=== PATIENT | male | born 1985 | race Caucasian/White ===

== ENCOUNTER 2017-03-09 17:53 | Inpatient (IN) ==
[~2017-03-09 17:53] MED LIST: *HR* Etomidate 20 MG/10 ML AMPUL IVP ONE; *HR* Rocuronium Bromide 100 MG/10 ML VIAL IVC ONE
[2017-03-09] MEDS ORDERED: 0.9 % Sodium Chloride 1,000 ML IVC ONE (18:06)
[2017-03-09] MEDS ORDERED: Propofol 500 MG/50 ML INFUS..BTL ONE ×2 (18:11→21:07)
--- NOTE | 2017-03-09 18:13 | Emergency Department Note ---
Disposition Clinical Impression: Poisoning by opiate or related narcotic Drug overdose Qualifiers: Encounter type: initial encounter Injury intent: undetermined intent Qualified Code(s): T50.904A - Poisoning by unspecified drugs, medicaments and biological substances, undetermined, initial encounter Respiratory failure Qualifiers: Chronicity: acute Respiratory failure complication: hypoxia and hypercapnia Qualified Code(s): J96.01 - Acute respiratory failure with hypoxia Disposition: Admitted As Inpatient Condition: Critical Referrals: NONE,PCP [Primary Care Provider] - Forms: ED Satisfaction Letter General Adult HPI - General Chief complaint: ED Overdose Stated complaint: unresponsive Time Seen by Provider: 03/09/17 18:06 Source: EMS Limitations: other Nursing Notes Reviewed: Yes Vital Signs Reviewed: Yes - History of Present Illness Pain Scale: 0 - Related Data Home Medications Medication Instructions Recorded Confirmed Gabapentin [Neurontin] 800 mg PO TID 03/09/17 03/09/17 Ibuprofen [Motrin] 800 mg PO Q8HR 03/09/17 03/09/17 Lurasidone HCl [Latuda] 80 mg PO HS 03/09/17 03/09/17 Naloxone HCl [Narcan] 4 mg NS AD PRN 03/09/17 03/09/17 Neomycin Blount/Bacitrac Zn/Poly 1 appl TP DAILY 03/09/17 03/09/17 [Triple Antibiotic Ointment] Thiamine (B-1) [Vitamin B-1] 100 mg PO BID 03/09/17 03/09/17 Allergies Allergy/AdvReac Type Severity Reaction Status Date / Time naltrexone AdvReac See Verified 03/09/17 20:17 Comments sumatriptan [From Imitrex] AdvReac See Verified 03/09/17 20:17 Comments Past Medical History - Past Medical History Medical history: Reports: other - Social History Smoking Status: Unknown if ever smoked Smokeless Tobacco Status: No Drug use: Reports: unknown Physical Exam - General Limitations: other General appearance: alert, in no apparent distress Course Vital Signs Temperature 0 F L 03/09/17 17:55 Pulse Rate 111 03/09/17 17:55 Respiratory Rate 22 03/09/17 17:55 Blood Pressure 134/76 03/09/17 17:55 O2 Sat by Pulse Oximetry 91 03/09/17 17:55 Temperature 0 F L 03/09/17 17:55 Pulse Rate 103 03/09/17 19:39 Respiratory Rate 24 03/09/17 19:39 Blood Pressure 149/93 03/09/17 19:39 O2 Sat by Pulse Oximetry 100 03/09/17 19:39 Oxygen Delivery Oxygen Delivery Ventilator Medical Decision Making - MDM Narrative Medical decision making narrative: I examined this patient and my medical decision-making was reviewed with the Resident Physician. I agree with the documented findings, disposition and treatment plan as described except to the extent set forth below. Patient seen and evaluated on arrival with EMS I agree with Dr. Villalba's evaluation and management plan, supervise care the patient's stay. Patient was found down at a retirement. Thomas medications multiple duplicates medications including buprenorphine and psychiatric medications. Uncertain whether he overdosed or not. No history of heroin use. Please responded initially given 2 mg of Narcan without response did another 4 mg here without much change. So he was electively intubated. Do not see any track iniguez. No signs of trauma. His pupils were 4 mm and slow to react. He was intubated and he is going over for head CT CT of his neck also chest x-ray and then a medical workup. He will need admission. Head CT 03/09/17 18:06 IMPRESSION: No acute intracranial abnormality. D/ / Antonino Hooper / Antonino Hooper Interpreting Provider: Antonino Hooper Chest X-Ray 03/09/17 18:36 IMPRESSION: Endotracheal tube with tip at the level the gideon. The endotracheal tube should be retracted by approximately 3 cm. Enteric tube, side hole above the gastroesophageal junction. The enteric tube should be advanced by several cm. Left pleural effusion left basilar airspace disease. Low lung volume study showing perihilar airspace disease. Correlation for pulmonary edema is recommended. D/ / Blanca Morrison Cha, MD / Blanca Morrison Cha, MD Interpreting Provider: Blanca Morrison Cha, MD 1847 hrs.: Patient had an EKG performed shows sinus tachycardia rate 110, glucose is 106, QTC is 415, no signs of acute ischemia or other abnormality, no old EKG to compare this to. 1930 hrs.: Patient's labs are back positive for marijuana and opiates in his urine. He is resting comfortably on the vent. Impression is respiratory failure with hypoxia and hypercapnia, drug overdose and alcohol intoxication. Patient will be admitted to the ICU unit. We will speak to the hospitalist. Critical care time exclusive of any separately billable procedures is 50 minutes. - Lab Data Result diagrams: 03/09/17 19:15 03/09/17 19:15 Lab Results 03/09/17 03/09/17 03/09/17 Range/Units 18:50 18:50 18:50 WBC (4.3-11.1) K/mcL RBC (4.19-5.50) M/mcL Hgb (12.9-16.9) g/dL Hct (37.5-50.1) % MCV (83.0-100.0) fL MCH (28.0-33.3) pg MCHC (31.6-35.5) g/dL RDW (11.5-14.5) % Plt Count (140-400) K/mcL MPV (9.4-12.4) fL Immature Gran % (0-4) % Seg Neutrophils % % Lymphocytes % % Monocytes % % Eosinophils % % Basophils % % Neutrophils # (1.6-8.9) K/mcL Lymphocytes # (0.6-4.6) K/mcL Monocytes # (0.0-1.3) K/mcL Eosinophils # (0.0-0.6) K/mcL Basophils # (0.0-0.2) K/mcL Reactive Lymphocytes (Not Present) Platelet Estimate (Normal) ABG pH 7.18 L* (7.32-7.45) pH Units ABG pCO2 64 H (35-45) mmHg ABG pO2 236 H (85-104) mmHg ABG HCO3 23.9 (21-27) mEQ/L ABG Total CO2 25.9 (20-26) mEq/L ABG O2 Saturation 100 H (95-98) % ABG Base Excess -5.9 L (-2.0 to 3.0) mEq/L Blood Gas Modality VCT Inspired O2 100 % Sodium (136-145) mEq/L Potassium (3.5-4.5) mEq/L Chloride (98-109) mEq/L Carbon Dioxide (19-29) mEq/L BUN (8-26) mg/dL Creatinine (0.72-1.25) mg/dL Est GFR ( Amer) (> 60) Est GFR (Non-Af Amer) (> 60) BUN/Creatinine Ratio (6-26) Glucose (70-99) mg/dL Calculated Osmolality (280-300) Lactic Acid (0.5-2.2) mmol/L Calcium (8.6-10.8) mg/dL Total Bilirubin (0.2-1.2) mg/dL Direct Bilirubin (0.0-0.5) mg/dL Indirect Bilirubin (0.0-1.2) mg/dL AST (5-34) Units/L ALT (0-55) Units/L Alkaline Phosphatase (38-126) Units/L Troponin I (0-0.03) ng/mL Serum Total Protein (6.0-8.3) g/dL Albumin (3.5-5.0) g/dL Globulin (2.4-3.5) g/dL Albumin/Globulin Ratio (1.1-2.2) Urine Color Yellow (Yellow) Urine Clarity Clear (Clear) Urine pH 6.0 (5.0-8.0) pH Units Ur Specific [place] 1.011 (1.010-1.025) Urine Protein Negative (Neg-Trace) mg/dL Urine Glucose (UA) Normal (Normal) mg/dL Urine Ketones Negative (Negative) mg/dL Urine Blood Negative (Negative) Urine Nitrite Negative (Negative) Urine Bilirubin Negative (Negative) Urine Urobilinogen Normal (Normal) mg/dL Ur Leukocyte Esterase Negative (Negative) Salicylates (15-30) mg/dL Urine Opiates Screen Positive H (Hnedyi=020) ng/mL Acetaminophen (10-30) mcg/mL Ur Barbiturates Screen Negative (Fuvord=783) ng/mL Ur Phencyclidine Scrn Negative (Cutoff=25) ng/mL Ur Amphetamines Screen Negative (Msuuox=4494) ng/mL U Benzodiazepines Scrn Negative (Qqmwwd=914) ng/mL Urine Cocaine Screen Negative (Cutoff= 300) ng/mL U Marijuana (THC) Screen Positive H (Cutoff = 50) ng/mL Ethyl Alcohol (0-10) mg/dL 03/09/17 03/09/17 03/09/17 Range/Units 19:15 19:15 19:15 WBC 4.7 (4.3-11.1) K/mcL RBC 5.42 (4.19-5.50) M/mcL Hgb 15.6 (12.9-16.9) g/dL Hct 47.5 (37.5-50.1) % MCV 87.6 (83.0-100.0) fL MCH 28.8 (28.0-33.3) pg MCHC 32.8 (31.6-35.5) g/dL RDW 15.6 H (11.5-14.5) % Plt Count 214 (140-400) K/mcL MPV 9.9 (9.4-12.4) fL Immature Gran % 1.1 (0-4) % Seg Neutrophils % 14.1 % Lymphocytes % 66.2 % Monocytes % 16.2 % Eosinophils % 1.3 % Basophils % 1.1 % Neutrophils # 0.7 L (1.6-8.9) K/mcL Lymphocytes # 3.1 (0.6-4.6) K/mcL Monocytes # 0.8 (0.0-1.3) K/mcL Eosinophils # 0.1 (0.0-0.6) K/mcL Basophils # 0.1 (0.0-0.2) K/mcL Reactive Lymphocytes Present A (Not Present) Platelet Estimate Normal (Normal) ABG pH (7.32-7.45) pH Units ABG pCO2 (35-45) mmHg ABG pO2 (85-104) mmHg ABG HCO3 (21-27) mEQ/L ABG Total CO2 (20-26) mEq/L ABG O2 Saturation (95-98) % ABG Base Excess (-2.0 to 3.0) mEq/L Blood Gas Modality Inspired O2 % Sodium 143 (136-145) mEq/L Potassium 3.6 (3.5-4.5) mEq/L Chloride 110 H (98-109) mEq/L Carbon Dioxide 23 (19-29) mEq/L BUN 6 L (8-26) mg/dL Creatinine 0.65 L (0.72-1.25) mg/dL Est GFR ( Amer) > 60 (> 60) Est GFR (Non-Af Amer) > 60 (> 60) BUN/Creatinine Ratio 9 (6-26) Glucose 136 H (70-99) mg/dL Calculated Osmolality 296 (280-300) Lactic Acid 1.6 (0.5-2.2) mmol/L Calcium 7.9 L (8.6-10.8) mg/dL Total Bilirubin 0.7 (0.2-1.2) mg/dL Direct Bilirubin 0.3 (0.0-0.5) mg/dL Indirect Bilirubin 0.4 (0.0-1.2) mg/dL AST 294 H (5-34) Units/L ALT 651 H (0-55) Units/L Alkaline Phosphatase 94 (38-126) Units/L Troponin I (0-0.03) ng/mL Serum Total Protein 6.8 (6.0-8.3) g/dL Albumin 3.6 (3.5-5.0) g/dL Globulin 3.2 (2.4-3.5) g/dL Albumin/Globulin Ratio 1.1 (1.1-2.2) Urine Color (Yellow) Urine Clarity (Clear) Urine pH (5.0-8.0) pH Units Ur Specific [place] (1.010-1.025) Urine Protein (Neg-Trace) mg/dL Urine Glucose (UA) (Normal) mg/dL Urine Ketones (Negative) mg/dL Urine Blood (Negative) Urine Nitrite (Negative) Urine Bilirubin (Negative) Urine Urobilinogen (Normal) mg/dL Ur Leukocyte Esterase (Negative) Salicylates < 5.0 L (15-30) mg/dL Urine Opiates Screen (Iktdtd=876) ng/mL Acetaminophen < 1.0 L (10-30) mcg/mL Ur Barbiturates Screen (Sfioxi=830) ng/mL Ur Phencyclidine Scrn (Cutoff=25) ng/mL Ur Amphetamines Screen (Mnkhyb=0764) ng/mL U Benzodiazepines Scrn (Cwzxit=672) ng/mL Urine Cocaine Screen (Cutoff= 300) ng/mL U Marijuana (THC) Screen (Cutoff = 50) ng/mL Ethyl Alcohol 369 H (0-10) mg/dL 03/09/17 Range/Units 19:15 WBC (4.3-11.1) K/mcL RBC (4.19-5.50) M/mcL Hgb (12.9-16.9) g/dL Hct (37.5-50.1) % MCV (83.0-100.0) fL MCH (28.0-33.3) pg MCHC (31.6-35.5) g/dL RDW (11.5-14.5) % Plt Count (140-400) K/mcL MPV (9.4-12.4) fL Immature Gran % (0-4) % Seg Neutrophils % % Lymphocytes % % Monocytes % % Eosinophils % % Basophils % % Neutrophils # (1.6-8.9) K/mcL Lymphocytes # (0.6-4.6) K/mcL Monocytes # (0.0-1.3) K/mcL Eosinophils # (0.0-0.6) K/mcL Basophils # (0.0-0.2) K/mcL Reactive Lymphocytes (Not Present) Platelet Estimate (Normal) ABG pH (7.32-7.45) pH Units ABG pCO2 (35-45) mmHg ABG pO2 (85-104) mmHg ABG HCO3 (21-27) mEQ/L ABG Total CO2 (20-26) mEq/L ABG O2 Saturation (95-98) % ABG Base Excess (-2.0 to 3.0) mEq/L Blood Gas Modality Inspired O2 % Sodium (136-145) mEq/L Potassium (3.5-4.5) mEq/L Chloride (98-109) mEq/L Carbon Dioxide (19-29) mEq/L BUN (8-26) mg/dL Creatinine (0.72-1.25) mg/dL Est GFR ( Amer) (> 60) Est GFR (Non-Af Amer) (> 60) BUN/Creatinine Ratio (6-26) Glucose (70-99) mg/dL Calculated Osmolality (280-300) Lactic Acid (0.5-2.2) mmol/L Calcium (8.6-10.8) mg/dL Total Bilirubin (0.2-1.2) mg/dL Direct Bilirubin (0.0-0.5) mg/dL Indirect Bilirubin (0.0-1.2) mg/dL AST (5-34) Units/L ALT (0-55) Units/L Alkaline Phosphatase (38-126) Units/L Troponin I 0.00 (0-0.03) ng/mL Serum Total Protein (6.0-8.3) g/dL Albumin (3.5-5.0) g/dL Globulin (2.4-3.5) g/dL Albumin/Globulin Ratio (1.1-2.2) Urine Color (Yellow) Urine Clarity (Clear) Urine pH (5.0-8.0) pH Units Ur Specific [place] (1.010-1.025) Urine Protein (Neg-Trace) mg/dL Urine Glucose (UA) (Normal) mg/dL Urine Ketones (Negative) mg/dL Urine Blood (Negative) Urine Nitrite (Negative) Urine Bilirubin (Negative) Urine Urobilinogen (Normal) mg/dL Ur Leukocyte Esterase (Negative) Salicylates (15-30) mg/dL Urine Opiates Screen (Aoywxn=340) ng/mL Acetaminophen (10-30) mcg/mL Ur Barbiturates Screen (Jvejrk=155) ng/mL Ur Phencyclidine Scrn (Cutoff=25) ng/mL Ur Amphetamines Screen (Nujknw=9247) ng/mL U Benzodiazepines Scrn (Oslqia=338) ng/mL Urine Cocaine Screen (Cutoff= 300) ng/mL U Marijuana (THC) Screen (Cutoff = 50) ng/mL Ethyl Alcohol (0-10) mg/dL
[2017-03-09] MEDS ORDERED: *HR* Rocuronium Bromide 50 MG/5 ML VIAL IVP ONE (18:36)
[2017-03-09] MEDS ORDERED: *HR* Etomidate 20 MG/10 ML AMPUL IVP ONE (18:36)
--- NOTE | 2017-03-09 18:42 | Emergency Department Note ---
Overdose - [facility] Narrative Medical decision making narrative: Patient brought in altered mental status from a [place] [facility] concerning for overdose, huge bag of medication was brought in with the patient. Patient was intubated here in the ED. Placed on vent. Labs show: ABG pH 7.18, CO2 64, O2 236, base excess -5.9. Patient respiratory acidosis Elevated transaminases AST/ALT: 294/651 respectively, patient is positive for opiates, marijuana, and EtOH 369. Patient to be admitted to ICU - Lab Data Lab results reviewed: Yes I reviewed the patient's lab results. Lab results narrative: Short CBC 03/09/17 Range/Units 19:15 WBC 4.7 (4.3-11.1) K/mcL Hgb 15.6 (12.9-16.9) g/dL Hct 47.5 (37.5-50.1) % Plt Count 214 (140-400) K/mcL Neutrophils # 0.7 L (1.6-8.9) K/mcL BMP 03/09/17 Range/Units 19:15 Sodium 143 (136-145) mEq/L Potassium 3.6 (3.5-4.5) mEq/L Chloride 110 H (98-109) mEq/L Carbon Dioxide 23 (19-29) mEq/L BUN 6 L (8-26) mg/dL Creatinine 0.65 L (0.72-1.25) mg/dL Glucose 136 H (70-99) mg/dL Calcium 7.9 L (8.6-10.8) mg/dL Cardiac Enzymes 03/09/17 Range/Units 19:15 Troponin I 0.00 (0-0.03) ng/mL Liver Function 03/09/17 Range/Units 19:15 Total Bilirubin 0.7 (0.2-1.2) mg/dL Direct Bilirubin 0.3 (0.0-0.5) mg/dL AST 294 H (5-34) Units/L ALT 651 H (0-55) Units/L Alkaline Phosphatase 94 (38-126) Units/L Albumin 3.6 (3.5-5.0) g/dL Urine 03/09/17 Range/Units 18:50 Urine Color Yellow (Yellow) Urine Clarity Clear (Clear) Urine pH 6.0 (5.0-8.0) pH Units Ur Specific [place] 1.011 (1.010-1.025) Urine Protein Negative (Neg-Trace) mg/dL Urine Glucose (UA) Normal (Normal) mg/dL Result diagrams: 03/09/17 19:15 03/09/17 19:15 Lab Results 03/09/17 03/09/17 03/09/17 Range/Units 18:50 18:50 18:50 WBC (4.3-11.1) K/mcL RBC (4.19-5.50) M/mcL Hgb (12.9-16.9) g/dL Hct (37.5-50.1) % MCV (83.0-100.0) fL MCH (28.0-33.3) pg MCHC (31.6-35.5) g/dL RDW (11.5-14.5) % Plt Count (140-400) K/mcL MPV (9.4-12.4) fL Immature Gran % (0-4) % Seg Neutrophils % % Lymphocytes % % Monocytes % % Eosinophils % % Basophils % % Neutrophils # (1.6-8.9) K/mcL Lymphocytes # (0.6-4.6) K/mcL Monocytes # (0.0-1.3) K/mcL Eosinophils # (0.0-0.6) K/mcL Basophils # (0.0-0.2) K/mcL Reactive Lymphocytes (Not Present) Platelet Estimate (Normal) ABG pH 7.18 L* (7.32-7.45) pH Units ABG pCO2 64 H (35-45) mmHg ABG pO2 236 H (85-104) mmHg ABG HCO3 23.9 (21-27) mEQ/L ABG Total CO2 25.9 (20-26) mEq/L ABG O2 Saturation 100 H (95-98) % ABG Base Excess -5.9 L (-2.0 to 3.0) mEq/L Blood Gas Modality VCT Inspired O2 100 % Sodium (136-145) mEq/L Potassium (3.5-4.5) mEq/L Chloride (98-109) mEq/L Carbon Dioxide (19-29) mEq/L BUN (8-26) mg/dL Creatinine (0.72-1.25) mg/dL Est GFR ( Amer) (> 60) Est GFR (Non-Af Amer) (> 60) BUN/Creatinine Ratio (6-26) Glucose (70-99) mg/dL Calculated Osmolality (280-300) Lactic Acid (0.5-2.2) mmol/L Calcium (8.6-10.8) mg/dL Total Bilirubin (0.2-1.2) mg/dL Direct Bilirubin (0.0-0.5) mg/dL Indirect Bilirubin (0.0-1.2) mg/dL AST (5-34) Units/L ALT (0-55) Units/L Alkaline Phosphatase (38-126) Units/L Troponin I (0-0.03) ng/mL Serum Total Protein (6.0-8.3) g/dL Albumin (3.5-5.0) g/dL Globulin (2.4-3.5) g/dL Albumin/Globulin Ratio (1.1-2.2) Urine Color Yellow (Yellow) Urine Clarity Clear (Clear) Urine pH 6.0 (5.0-8.0) pH Units Ur Specific [place] 1.011 (1.010-1.025) Urine Protein Negative (Neg-Trace) mg/dL Urine Glucose (UA) Normal (Normal) mg/dL Urine Ketones Negative (Negative) mg/dL Urine Blood Negative (Negative) Urine Nitrite Negative (Negative) Urine Bilirubin Negative (Negative) Urine Urobilinogen Normal (Normal) mg/dL Ur Leukocyte Esterase Negative (Negative) Salicylates (15-30) mg/dL Urine Opiates Screen Positive H (Tgxfow=996) ng/mL Acetaminophen (10-30) mcg/mL Ur Barbiturates Screen Negative (Axlvof=554) ng/mL Ur Phencyclidine Scrn Negative (Cutoff=25) ng/mL Ur Amphetamines Screen Negative (Fmjxon=4594) ng/mL U Benzodiazepines Scrn Negative (Zjglur=476) ng/mL Urine Cocaine Screen Negative (Cutoff= 300) ng/mL U Marijuana (THC) Screen Positive H (Cutoff = 50) ng/mL Ethyl Alcohol (0-10) mg/dL 03/09/17 03/09/17 03/09/17 Range/Units 19:15 19:15 19:15 WBC 4.7 (4.3-11.1) K/mcL RBC 5.42 (4.19-5.50) M/mcL Hgb 15.6 (12.9-16.9) g/dL Hct 47.5 (37.5-50.1) % MCV 87.6 (83.0-100.0) fL MCH 28.8 (28.0-33.3) pg MCHC 32.8 (31.6-35.5) g/dL RDW 15.6 H (11.5-14.5) % Plt Count 214 (140-400) K/mcL MPV 9.9 (9.4-12.4) fL Immature Gran % 1.1 (0-4) % Seg Neutrophils % 14.1 % Lymphocytes % 66.2 % Monocytes % 16.2 % Eosinophils % 1.3 % Basophils % 1.1 % Neutrophils # 0.7 L (1.6-8.9) K/mcL Lymphocytes # 3.1 (0.6-4.6) K/mcL Monocytes # 0.8 (0.0-1.3) K/mcL Eosinophils # 0.1 (0.0-0.6) K/mcL Basophils # 0.1 (0.0-0.2) K/mcL Reactive Lymphocytes Present A (Not Present) Platelet Estimate Normal (Normal) ABG pH (7.32-7.45) pH Units ABG pCO2 (35-45) mmHg ABG pO2 (85-104) mmHg ABG HCO3 (21-27) mEQ/L ABG Total CO2 (20-26) mEq/L ABG O2 Saturation (95-98) % ABG Base Excess (-2.0 to 3.0) mEq/L Blood Gas Modality Inspired O2 % Sodium 143 (136-145) mEq/L Potassium 3.6 (3.5-4.5) mEq/L Chloride 110 H (98-109) mEq/L Carbon Dioxide 23 (19-29) mEq/L BUN 6 L (8-26) mg/dL Creatinine 0.65 L (0.72-1.25) mg/dL Est GFR ( Amer) > 60 (> 60) Est GFR (Non-Af Amer) > 60 (> 60) BUN/Creatinine Ratio 9 (6-26) Glucose 136 H (70-99) mg/dL Calculated Osmolality 296 (280-300) Lactic Acid 1.6 (0.5-2.2) mmol/L Calcium 7.9 L (8.6-10.8) mg/dL Total Bilirubin 0.7 (0.2-1.2) mg/dL Direct Bilirubin 0.3 (0.0-0.5) mg/dL Indirect Bilirubin 0.4 (0.0-1.2) mg/dL AST 294 H (5-34) Units/L ALT 651 H (0-55) Units/L Alkaline Phosphatase 94 (38-126) Units/L Troponin I (0-0.03) ng/mL Serum Total Protein 6.8 (6.0-8.3) g/dL Albumin 3.6 (3.5-5.0) g/dL Globulin 3.2 (2.4-3.5) g/dL Albumin/Globulin Ratio 1.1 (1.1-2.2) Urine Color (Yellow) Urine Clarity (Clear) Urine pH (5.0-8.0) pH Units Ur Specific [place] (1.010-1.025) Urine Protein (Neg-Trace) mg/dL Urine Glucose (UA) (Normal) mg/dL Urine Ketones (Negative) mg/dL Urine Blood (Negative) Urine Nitrite (Negative) Urine Bilirubin (Negative) Urine Urobilinogen (Normal) mg/dL Ur Leukocyte Esterase (Negative) Salicylates < 5.0 L (15-30) mg/dL Urine Opiates Screen (Skykyo=705) ng/mL Acetaminophen < 1.0 L (10-30) mcg/mL Ur Barbiturates Screen (Lknxqn=855) ng/mL Ur Phencyclidine Scrn (Cutoff=25) ng/mL Ur Amphetamines Screen (Iaovdb=3848) ng/mL U Benzodiazepines Scrn (Fhvwxj=993) ng/mL Urine Cocaine Screen (Cutoff= 300) ng/mL U Marijuana (THC) Screen (Cutoff = 50) ng/mL Ethyl Alcohol 369 H (0-10) mg/dL 03/09/17 Range/Units 19:15 WBC (4.3-11.1) K/mcL RBC (4.19-5.50) M/mcL Hgb (12.9-16.9) g/dL Hct (37.5-50.1) % MCV (83.0-100.0) fL MCH (28.0-33.3) pg MCHC (31.6-35.5) g/dL RDW (11.5-14.5) % Plt Count (140-400) K/mcL MPV (9.4-12.4) fL Immature Gran % (0-4) % Seg Neutrophils % % Lymphocytes % % Monocytes % % Eosinophils % % Basophils % % Neutrophils # (1.6-8.9) K/mcL Lymphocytes # (0.6-4.6) K/mcL Monocytes # (0.0-1.3) K/mcL Eosinophils # (0.0-0.6) K/mcL Basophils # (0.0-0.2) K/mcL Reactive Lymphocytes (Not Present) Platelet Estimate (Normal) ABG pH (7.32-7.45) pH Units ABG pCO2 (35-45) mmHg ABG pO2 (85-104) mmHg ABG HCO3 (21-27) mEQ/L ABG Total CO2 (20-26) mEq/L ABG O2 Saturation (95-98) % ABG Base Excess (-2.0 to 3.0) mEq/L Blood Gas Modality Inspired O2 % Sodium (136-145) mEq/L Potassium (3.5-4.5) mEq/L Chloride (98-109) mEq/L Carbon Dioxide (19-29) mEq/L BUN (8-26) mg/dL Creatinine (0.72-1.25) mg/dL Est GFR ( Amer) (> 60) Est GFR (Non-Af Amer) (> 60) BUN/Creatinine Ratio (6-26) Glucose (70-99) mg/dL Calculated Osmolality (280-300) Lactic Acid (0.5-2.2) mmol/L Calcium (8.6-10.8) mg/dL Total Bilirubin (0.2-1.2) mg/dL Direct Bilirubin (0.0-0.5) mg/dL Indirect Bilirubin (0.0-1.2) mg/dL AST (5-34) Units/L ALT (0-55) Units/L Alkaline Phosphatase (38-126) Units/L Troponin I 0.00 (0-0.03) ng/mL Serum Total Protein (6.0-8.3) g/dL Albumin (3.5-5.0) g/dL Globulin (2.4-3.5) g/dL Albumin/Globulin Ratio (1.1-2.2) Urine Color (Yellow) Urine Clarity (Clear) Urine pH (5.0-8.0) pH Units Ur Specific [place] (1.010-1.025) Urine Protein (Neg-Trace) mg/dL Urine Glucose (UA) (Normal) mg/dL Urine Ketones (Negative) mg/dL Urine Blood (Negative) Urine Nitrite (Negative) Urine Bilirubin (Negative) Urine Urobilinogen (Normal) mg/dL Ur Leukocyte Esterase (Negative) Salicylates (15-30) mg/dL Urine Opiates Screen (Nsbfzv=559) ng/mL Acetaminophen (10-30) mcg/mL Ur Barbiturates Screen (Fqlzer=086) ng/mL Ur Phencyclidine Scrn (Cutoff=25) ng/mL Ur Amphetamines Screen (Lprawu=5773) ng/mL U Benzodiazepines Scrn (Kfnbtu=208) ng/mL Urine Cocaine Screen (Cutoff= 300) ng/mL U Marijuana (THC) Screen (Cutoff = 50) ng/mL Ethyl Alcohol (0-10) mg/dL - Radiology Data Radiology results reviewed: Yes I reviewed the patient's radiology results. Head CT 03/09/17 18:06 IMPRESSION: No acute intracranial abnormality. D/ / Antonino Hooper / Antonino Hooper Interpreting Provider: Antonino Hooper Chest X-Ray 03/09/17 18:36 IMPRESSION: Endotracheal tube with tip at the level the gideon. The endotracheal tube should be retracted by approximately 3 cm. Enteric tube, side hole above the gastroesophageal junction. The enteric tube should be advanced by several cm. Left pleural effusion left basilar airspace disease. Low lung volume study showing perihilar airspace disease. Correlation for pulmonary edema is recommended. D/ / Blanca Morrison Cha, MD / Blanca Morrison Cha, MD Interpreting Provider: Blanca Morrison Cha, MD - EKG Data EKG attestation: Yes I reviewed and interpreted this EKG. EKG results narrative: EKG taken 03/09/2017 at 1847 hrs. shows sinus tachycardia at [address] elevations or depressions any leads, no QRS widened QT prolongation. Overdose HPI - General Chief Complaint: ED Overdose Stated Complaint: unresponsive Time Seen by Provider: 03/09/17 18:06 Source: EMS Limitations: other Nursing Notes Reviewed: Yes Vital Signs Reviewed: Yes - History of Present Illness HPI Narrative: Patient is a 31-year-old mal who is brought into the EMS secondary to altered mental status secondary to possible overdose versus head trauma. Resuscitation initiated immediately. Patient received 6mg of Narcan total, 2 by police, for by us. No response. Patient's GCS 3 still breathing but shallowly. Patient intubated and placed on vent for mechanical support. - Related Data Home Medications Medication Instructions Recorded Confirmed Gabapentin [Neurontin] 800 mg PO TID 03/09/17 03/09/17 Ibuprofen [Motrin] 800 mg PO Q8HR 03/09/17 03/09/17 Lurasidone HCl [Latuda] 80 mg PO HS 03/09/17 03/09/17 Naloxone HCl [Narcan] 4 mg NS AD PRN 03/09/17 03/09/17 Neomycin Blount/Bacitrac Zn/Poly 1 appl TP DAILY 03/09/17 03/09/17 [Triple Antibiotic Ointment] Thiamine (B-1) [Vitamin B-1] 100 mg PO BID 03/09/17 03/09/17 Allergies Allergy/AdvReac Type Severity Reaction Status Date / Time naltrexone AdvReac See Verified 03/09/17 20:17 Comments sumatriptan [From Imitrex] AdvReac See Verified 03/09/17 20:17 Comments Limitations: ROS unobtainable due to patients medical condition Past Medical History - Past Medical History Source: unable to obtain, old records reviewed Medical history: Reports: other - Social History Smoking Status: Unknown if ever smoked Smokeless Tobacco Status: No Drug use: Reports: unknown Physical Exam - General Limitations: altered mental status, other General appearance: alert, in no apparent distress - Head Head exam: atraumatic, normocephalic, normal inspection - Eye Eye exam: Present: other (Pupils 5 mm reactive to light) - ENT ENT exam: mucous membranes moist - Neck Neck exam: Present: normal inspection, trachea midline - Chest Chest inspection: Present: normal inspection - Respiratory Respiratory exam: Present: normal lung sounds bilaterally - Cardiovascular Cardiovascular exam: Present: tachycardia - Abdominal Exam Abdominal exam: Present: soft - Male exam: Present: normal inspection - Extremities Exam Extremities exam: Present: normal inspection Course - Consultations Consultation #1: Dr. Marques the hospitalist has except patient for admission to ICU at 2047 Time: 20:56 Vital Signs Temperature 0 F L 03/09/17 17:55 Pulse Rate 111 03/09/17 17:55 Respiratory Rate 22 03/09/17 17:55 Blood Pressure 134/76 03/09/17 17:55 O2 Sat by Pulse Oximetry 91 03/09/17 17:55 Temperature 97.8 F 03/09/17 20:30 Pulse Rate 103 03/09/17 20:30 Respiratory Rate 19 03/09/17 20:48 Blood Pressure 141/90 03/09/17 20:48 O2 Sat by Pulse Oximetry 100 03/09/17 20:48 Oxygen Delivery Oxygen Delivery Ventilator Procedures - Intubation Time out performed: Yes sedative: Etomidate Mg Given: 30 paralytic: Rocuronium Mg Given: 100 Laryngoscope: Dk ET Tube Size: 7.5 ET Tube Uncuffed: No Tube Secured Depth (cm): 25 Tube Secured Location: teeth Tube Placement Confirmation: visualized tube passing through cords, equal breath sounds bilaterally, no breath sounds over epigastrium, confirmation by capnometry Patient Tolerated Procedure: well, no complications Intubation Complications: none Disposition Clinical Impression: Poisoning by opiate or related narcotic, Respiratory acidosis Drug overdose Qualifiers: Encounter type: initial encounter Injury intent: undetermined intent Qualified Code(s): T50.904A - Poisoning by unspecified drugs, medicaments and biological substances, undetermined, initial encounter Respiratory failure Qualifiers: Chronicity: acute Respiratory failure complication: hypoxia and hypercapnia Qualified Code(s): J96.01 - Acute respiratory failure with hypoxia Overdose of analgesic Qualifiers: Encounter type: initial encounter Injury intent: undetermined intent Qualified Code(s): T39.94XA - Poisoning by unspecified nonopioid analgesic, antipyretic and antirheumatic, undetermined, initial encounter Disposition: Admitted As Inpatient Condition: Critical Referrals: NONE,PCP [Primary Care Provider] - Forms: ED Satisfaction Letter Time of Disposition: 20:57
[2017-03-09 19:01] LABS: Bilirubin,Urine Negative (Negative); Blood,Urine Negative (Negative); Clarity,Urine Clear (Clear); Color,Urine Yellow (Yellow); Glucose,Urine (UA) Normal (Normal); Ketones,Urine Negative (Negative); Leukocyte Esterase,Urine Negative (Negative); Nitrite,Urine Negative (Negative); Protein,Urine Negative (Neg-Trace); Specific Gravity,Urine 1.011 (1.010-1.025); Urobilinogen,Urine Normal (Normal)
[2017-03-09 19:04] LABS: ABG Base Excess -5.9 mEq/L (-2.0 to 3.0); ABG HCO3 23.9 mEQ/L (21-27); ABG Oxygen Saturation 100 % (95-98); ABG PCO2 64 mmHg (35-45); ABG PO2 236 mmHg (85-104); ABG TCO2 25.9 mEq/L (20-26); Blood Gas FiO2 100 %
[2017-03-09 19:05] LABS: ABG PH 7.18 pH Units (7.32-7.45)
[2017-03-09 19:08] LABS: Amphetamine Screen,Urine Negative ng/mL (Cutoff=1000); Barbiturate Screen,Urine Negative ng/mL (Cutoff=200); Benzodiazepines Screen,Urine Negative ng/mL (Cutoff=200); Cannabinoid Screen,Urine Positive ng/mL (Cutoff = 50); Cocaine Screen,Urine Negative ng/mL (Cutoff= 300); Opiate Screen,Urine Positive ng/mL (Cutoff=300); Phencyclidine Screen,Urine Negative ng/mL (Cutoff=25)
[2017-03-09 19:23] LABS: Basophils # 0.1 K/mcL (0.0-0.2); Basophils % 1.1 %; Eosinophils # 0.1 K/mcL (0.0-0.6); Eosinophils % 1.3 %; Hematocrit 47.5 % (37.5-50.1); Hemoglobin 15.6 g/dL (12.9-16.9); Immature Granulocytes % 1.1 % (0-4); Lymphocytes # 3.1 K/mcL (0.6-4.6); Lymphocytes % 66.2 %; Mean Corpuscular HGB Conc 32.8 g/dL (31.6-35.5); Mean Corpuscular Hemoglobin 28.8 pg (28.0-33.3); Mean Corpuscular Volume 87.6 fL (83.0-100.0); Mean Platelet Volume 9.9 fL (9.4-12.4); Monocytes # 0.8 K/mcL (0.0-1.3); Monocytes % 16.2 %; Neutrophils # 0.7 K/mcL (1.6-8.9); Platelet Count 214 K/mcL (140-400); Red Blood Count 5.42 M/mcL (4.19-5.50); Red Cell Distribution Width 15.6 % (11.5-14.5); Segmented Neutrophils % 14.1 %
[2017-03-09 19:38] LABS: Alanine Aminotransferase 651 Units/L (0-55); Albumin 3.6 g/dL (3.5-5.0); Albumin/Globulin Ratio 1.1 (1.1-2.2); Alkaline Phosphatase 94 Units/L (38-126); Aspartate Amino Transferase 294 Units/L (5-34); BUN/Creatinine Ratio 9 (6-26); Bilirubin,Direct 0.3 mg/dL (0.0-0.5); Bilirubin,Indirect 0.4 mg/dL (0.0-1.2); Bilirubin,Total 0.7 mg/dL (0.2-1.2); Blood Urea Nitrogen 6 mg/dL (8-26); Calcium 7.9 mg/dL (8.6-10.8); Carbon Dioxide 23 mEq/L (19-29); Chloride 110 mEq/L (98-109); Ethanol 369 mg/dL (0-10); Globulin 3.2 g/dL (2.4-3.5); Glucose 136 mg/dL (70-99); Osmolality,Calculated 296 (280-300); Potassium 3.6 mEq/L (3.5-4.5); Sodium 143 mEq/L (136-145); Total Protein 6.8 g/dL (6.0-8.3); eGFR For African Americans > 60 (> 60); eGFR For Non-African Americans > 60 (> 60)
[2017-03-09 19:44] LABS: Acetaminophen < 1.0 mcg/mL (10-30); Salicylate < 5.0 mg/dL (15-30)
[2017-03-09 19:51] LABS: Platelet Estimate Normal (Normal); Reactive Lymphocytes Present (Not Present)
[2017-03-09] MEDS ORDERED: Naloxone 0.4 MG/ML INJ IVP PRN (20:55)
--- NOTE | 2017-03-09 20:55 | Internal Med History&Physical ---
<Harry Solis - Last Filed: 03/09/17 22:26> Date of Encounter: 03/09/17 Time of Encounter: 20:55 Assessment and Plan (1) Drug overdose Current visit: Yes Status: Acute Unresponsive and GCS 3 on presentation. Possible drug overdose. No track iniguez seen on exam. Patient was given total of 6mg narcan with no change. Medicaiton bag that accompanies patient included multiple bottles of medication, most of which were empty. Meds included: ibuprofen, prazosin, melatonin, suboxone, gabapentin, rizatripatn, lurasidone, and cyclobenzaprine. Drug screen positive for opiates, marijuana, alcohol. EKG shows sinus tach with no acute ST changes and no QT prolongation. CT head negative for acute intracranial abnormality. Patient is intubated secondary to acute respiratory failure and on ventillatory support, vitals stable, mildly hypertensive on propofol drip. Will fax [facility] for medical hx; no previous visits here at [place] Continue cardiac, BP, and O2 monitoring Continue fluids Continue supportive care Qualifiers: Encounter type: initial encounter Injury intent: undetermined intent Qualified Code(s): T50.904A - Poisoning by unspecified drugs, medicaments and biological substances, undetermined, initial encounter (2) Unresponsive Current visit: Yes Status: Acute (3) Respiratory failure Current visit: Yes Status: Acute Secondary to possible drug overdose, see above. Will consult pulm for vent management. Trend ABGs Continue to wean vent settings as tolerated and as patient becomes more responsive Qualifiers: Chronicity: acute Respiratory failure complication: hypoxia and hypercapnia Qualified Code(s): J96.01 - Acute respiratory failure with hypoxia ; J96.02 - Acute respiratory failure with hypercapnia (4) Respiratory acidosis Current visit: Yes Status: Acute Secondary to possible drug overdose. pH 7.18 on admission, CO2 CO2 64, HCO3 23. See above for plan. (5) DVT prophylaxis Current visit: Yes Status: Acute heparin SQ 5000 q12h Internal Medicine - H&P: HPI Chief complaint: unresponsive Admitted From: Emergency Dept Plans for Post Hospital Care: Home History of present illness: Mr. Brumfield is a 31 year old male with unknown medical history who presented to ED today due to being found unresponsive at assisted. jail members state that the patient was cooking in the home and then was found later in the floor, would not respond. EMS called. . On arrival to ED, patient remained unresponsive despite 6mg of narcan, had GCS 3 with shallow breathing and was intubated for airway protection. Pupils were equal and reactive to light at that time. Workup in ED showed: Drug screen positive for opiates, marijuana, alcohol. EKG shows sinus tach with no acute ST changes and no QT prolongation. CT head negative for acute intracranial abnormality. ABG showed resp acidosis with pH of 7.18, CO2 of 64, HCO3 23. Patient is intubated secondary to acute respiratory failure and on ventillatory support, vitals stable, mildly hypertensive on propofol drip. Of note, medicaiton bag that accompanies patient included multiple bottles of medication, most of which were empty. Meds included: ibuprofen, prazosin, melatonin, suboxone, gabapentin, rizatripatn, lurasidone, and cyclobenzaprine. No family or friends accompanied patient to ED for further PMHx. No records on file at [place] for patient. [facility] to [facility], will contact [facility] for further information about medical history. . Past Med Surg Social Fam HX - Past Medical History Medical history: other - Social History Smoking Status: Unknown if ever smoked Smokeless Tobacco Status: No Drug use: unknown Internal Medicine - H&P: Meds Gabapentin [Neurontin] 800 mg PO TID 03/09/17 [History] Ibuprofen [Motrin] 800 mg PO Q8HR 03/09/17 [History] Lurasidone HCl [Latuda] 80 mg PO HS 03/09/17 [History] Naloxone HCl [Narcan] 4 mg NS AD PRN 03/09/17 [History] Neomycin Blount/Bacitrac Zn/Poly [Triple Antibiotic Ointment] 1 appl TP DAILY [History] Thiamine (B-1) [Vitamin B-1] 100 mg PO BID 03/09/17 [History] naltrexone Adverse Reaction (Verified 03/09/17 20:17) See Comments [facility] list sumatriptan [From Imitrex] Adverse Reaction (Verified 03/09/17 20:17) See Comments [facility] list ROS unobtainable: due to mental status All Systems PM: A 10-system review of systems was performed and is negative for pertinent findings except as documented above in the HPI. - Constitutional Vitals: Temp Pulse Resp BP Pulse Ox 0 F L 104 19 141/90 100 08/16/17 17:55 03/09/17 19:45 03/09/17 20:48 03/09/17 20:48 03/09/17 20:48 Exam: Uresponsive to verbal or painful stimulation, intubated, PERRLA; GCS 3 - Head Head exam: Present: atraumatic, normal inspection, normocephalic - Eye Eye exam: Present: normal appearance, PERRL, sclera anicteric. Absent: periorbital swelling Pupils: Present: PERRL - Neck Neck exam general surgery: Present: trachea midline. Absent: lymphadenopathy - Respiratory Respiratory exam: Present: CTAB Additional comments: Intubated and on ventillatory support. Lungs CTAB. - Cardiovascular Cardiovascular exam: Present: +S1, +S2, tachycardia. Absent: systolic murmur - GI/Abdominal GI/Abdominal exam: Present: soft. Absent: distended, mass - Extremities Exam Extremities exam: Present: normal capillary refill, normal inspection, radial pulses palpable and symmetrical. Absent: cyanotic, pedal edema - Neurological Exam Additional comments: unresponsive, on propofol drip, GCS 3 - Skin Skin exam: Present: dry, intact, normal color, warm. Absent: cyanosis, diaphoretic, erythema, pallor, petechiae, rash Additional comments: No track iniguez appreciated on extremities Internal Med - H&P Results - Labs CBC & Chem 7: 03/09/17 19:15 03/09/17 19:15 Labs: Short CBC 03/09/17 Range/Units 19:15 WBC 4.7 (4.3-11.1) K/mcL Hgb 15.6 (12.9-16.9) g/dL Hct 47.5 (37.5-50.1) % Plt Count 214 (140-400) K/mcL Neutrophils # 0.7 L (1.6-8.9) K/mcL BMP 03/09/17 19:15 Sodium 143 Potassium 3.6 Chloride 110 H Carbon Dioxide 23 BUN 6 L Creatinine 0.65 L Glucose 136 H Calcium 7.9 L Cardiac Enzymes 03/09/17 Range/Units 19:15 Troponin I 0.00 (0-0.03) ng/mL Liver Function 03/09/17 Range/Units 19:15 Total Bilirubin 0.7 (0.2-1.2) mg/dL Direct Bilirubin 0.3 (0.0-0.5) mg/dL AST 294 H (5-34) Units/L ALT 651 H (0-55) Units/L Alkaline Phosphatase 94 (38-126) Units/L Albumin 3.6 (3.5-5.0) g/dL Urine 03/09/17 Range/Units 18:50 Urine Color Yellow (Yellow) Urine Clarity Clear (Clear) Urine pH 6.0 (5.0-8.0) pH Units Ur Specific Wilmot 1.011 (1.010-1.025) Urine Protein Negative (Neg-Trace) mg/dL Urine Glucose (UA) Normal (Normal) mg/dL - ABG Interpretation ABG results: 03/09/17 18:50 ABG pH 7.18 L* ABG pCO2 64 H ABG pO2 236 H ABG HCO3 23.9 ABG Total CO2 25.9 ABG O2 Saturation 100 H ABG Base Excess -5.9 L - Impressions ITS Impressions Head CT 03/09/17 18:06 IMPRESSION: No acute intracranial abnormality. D/ / Antonino Hooper / Antonino Hooper Interpreting Provider: Antonino Hooper Chest X-Ray 03/09/17 18:36 IMPRESSION: Endotracheal tube with tip at the level the gideon. The endotracheal tube should be retracted by approximately 3 cm. Enteric tube, side hole above the gastroesophageal junction. The enteric tube should be advanced by several cm. Left pleural effusion left basilar airspace disease. Low lung volume study showing perihilar airspace disease. Correlation for pulmonary edema is recommended. D/ / Blanca Morrison Cha, MD / Blanca Morrison Cha, MD Interpreting Provider: Blanca Morrison Cha, MD <Cooper Radford - Last Filed: 03/10/17 02:44> Date of Encounter: 03/09/17 Assessment and Plan (1) Acute encephalopathy Current visit: Yes Status: Acute most likely from a combination alcohol and polypharmacy, we will ventilate and monitor neuro status whilst investigation are ongoing, will hold psych medications (2) Acute respiratory failure with hypoxia and hypercapnia Current visit: Yes Status: Acute intubated initially for airway protection but found to have acute elevation of CO2 with hypoxia, from respiratory depression, currently on a vent, we will adjust settings based on ABG readings, Internal Medicine - H&P: HPI History of present illness: Mr. Brumfield is a 31 year old male Past Med Surg Social Fam HX - Past Medical History Source: unable to obtain (due to mental status) - Past Surgical History Surgical History: other (unable to obtain due to mental status) - Social History Additional social history: unable to obtain due to mental status - Additional Family History Additional family history: unable to obtain due to mental status All Systems PM: A 10-system review of systems was performed and is negative for pertinent findings except as documented above in the HPI. - Constitutional Vitals: Temp Pulse Resp BP Pulse Ox 97.7 F 120 19 147/93 97 03/09/17 23:34 03/10/17 02:01 03/10/17 02:01 03/10/17 02:01 03/10/17 02:01 Internal Med - H&P Results - Labs CBC & Chem 7: 03/09/17 19:15 03/09/17 19:15 - ABG Interpretation ABG results: 03/09/17 03/10/17 22:10 02:03 ABG pH 7.28 L 7.32 ABG pCO2 49 H 47 H ABG pO2 177 H 133 H ABG HCO3 23.0 24.2 ABG Total CO2 24.5 25.6 ABG O2 Saturation 99 H 99 H ABG Base Excess -4.2 L -2.4 L - Impressions ITS Impressions Chest X-Ray 03/09/17 21:31 IMPRESSION: Mid to lower lung zone bilateral airspace disease. This is nonspecific and may represent pulmonary edema or pneumonia. ET tube and enteric tube as described D/ / Antonino Hooper / Antonino Hooper Interpreting Provider: Antonino Hooper X-Ray 03/09/17 21:31 IMPRESSION: Enteric tube projecting in the left upper quadrant. No acute abnormality otherwise D/ / Antonino Hooper / Antonino Hooper Interpreting Provider: Antonino Hooper - Diagnostic Studies Chest x-ray Status: image reviewed by me CT scan - head Status: image reviewed by me - Attending Attestation I personally examined this patient and my medical decision-making was reviewed with the Resident Physician. I agree with the documented findings, disposition and treatment plan as described except to the extent set forth below. Patient has critical illness, with multiple vital organ impairment; mainly brain and respiratory with a high probability of imminent or life threatening deterioration in the patient's condition. I performed critical intervention, involving high complexity decision making to assess, manipulate, and support vital organ system failure; and I spent about 40 minutes engaged in work directly related to the patient's care at his immediate bedside and also on the unit, part of this time was also spent coordinating care that time was spent at the immediate bedside or elsewhere on the floor or unit. Critical care time; 40 minutes Cooper Radford MD, MPH Hospitalist
[2017-03-09] MEDS ORDERED: Lacri-Lube 3.5 GM TUBE BOTH EYES PRN (20:56)
[2017-03-09 22:17] LABS: ABG Base Excess -4.2 mEq/L (-2.0 to 3.0); ABG Oxygen Saturation 99 % (95-98); ABG PCO2 49 mmHg (35-45); ABG PH 7.28 pH Units (7.32-7.45); ABG PO2 177 mmHg (85-104); ABG TCO2 24.5 mEq/L (20-26)
[2017-03-09] MEDS: Chlorhexidine Rinse 15 ML MOUTHWASH MM SCH (22:18)
[2017-03-09] MEDS: 0.9 % Sodium Chloride 1,000 ML IVC SCH (22:18)
[2017-03-09 22:19] LABS: Blood Gas FiO2 50 %
[2017-03-09] MEDS: Lacri-Lube 3.5 GM TUBE BOTH EYES SCH (23:19)
[2017-03-10] MEDS ORDERED: FentaNYL (PF) 1,000 MCG in 0.9 % Sodium Chloride 80 ML IVC SCH (00:15)
[2017-03-10 02:13] LABS: ABG Base Excess -2.4 mEq/L (-2.0 to 3.0); ABG HCO3 24.2 mEQ/L (21-27); ABG Oxygen Saturation 99 % (95-98); ABG PCO2 47 mmHg (35-45); ABG PH 7.32 pH Units (7.32-7.45); ABG PO2 133 mmHg (85-104); ABG TCO2 25.6 mEq/L (20-26); Blood Gas FiO2 35 %
[2017-03-10 02:55] LABS: Basophils % 0.6 %; Eosinophils # 0.1 K/mcL (0.0-0.6); Eosinophils % 1.5 %; Hematocrit 46.2 % (37.5-50.1); Hemoglobin 15.3 g/dL (12.9-16.9); Immature Granulocytes % 0.6 % (0-4); Lymphocytes % 71.7 %; Mean Corpuscular HGB Conc 33.1 g/dL (31.6-35.5); Mean Corpuscular Hemoglobin 29.3 pg (28.0-33.3); Mean Corpuscular Volume 88.5 fL (83.0-100.0); Mean Platelet Volume 9.8 fL (9.4-12.4); Monocytes # 0.9 K/mcL (0.0-1.3); Monocytes % 18.5 %; Neutrophils # 0.3 K/mcL (1.6-8.9); Platelet Count 220 K/mcL (140-400); Red Blood Count 5.22 M/mcL (4.19-5.50); Red Cell Distribution Width 15.7 % (11.5-14.5); Segmented Neutrophils % 7.1 %
[2017-03-10 02:59] LABS: Lymphocytes # 3.4 K/mcL (0.6-4.6)
[2017-03-10 03:11] LABS: Alanine Aminotransferase 616 Units/L (0-55); Albumin 3.4 g/dL (3.5-5.0); Alkaline Phosphatase 89 Units/L (38-126); Aspartate Amino Transferase 276 Units/L (5-34); BUN/Creatinine Ratio 9 (6-26); Bilirubin,Total 0.4 mg/dL (0.2-1.2); Blood Urea Nitrogen 6 mg/dL (8-26); Carbon Dioxide 23 mEq/L (19-29); Chloride 113 mEq/L (98-109); Globulin 3.3 g/dL (2.4-3.5); Glucose 116 mg/dL (70-99); Magnesium 1.9 mg/dL (1.6-2.6); Osmolality,Calculated 297 (280-300); Sodium 144 mEq/L (136-145); Total Protein 6.7 g/dL (6.0-8.3); eGFR For African Americans > 60 (> 60); eGFR For Non-African Americans > 60 (> 60)
[2017-03-10 03:27] LABS: Platelet Estimate Normal (Normal); Reactive Lymphocytes Present (Not Present)
--- NOTE | 2017-03-10 03:31 | Event Note ---
Date of Encounter: 03/10/17 Time of Encounter: 03:24 Patient became more alert and began following commands while intubated and on propofol drip and fentanyl drip. Repeat gas showed markedly improved pH. He was able to follow specific commands, was shaking head yes and no correctly to questions. He was trials on spontaneous breathing and pulled good volumes. Patient was extubated by respiratory. After being extubated, the patient was questioned more about the events leading up to him being found unresponsive. He states that he was drinking alcohol and "shot up heroin" into his left arm. Denies any other drug use or overdosing on any of his prescription medications. He is unsure of the amount of heroin he used. He is also uncertain as to whether or not this was a suicide attempt. As soon as he was extubated he asked "Did I try to kill myself again? I can't believe I tried to kill myself again." Patient does admit to prior attempts in the past. Will order a sitter for the patient and then consult psychiatry for further evaluation.
[2017-03-10] MEDS: Lacri-Lube 3.5 GM TUBE BOTH EYES SCH ×5 (03:35→20:35)
[2017-03-10] MEDS ORDERED: *HR* LORazepam 2 MG/ML VIAL IVP PRN ×2 (04:03→08:16)
[2017-03-10] MEDS: Famotidine 20 MG/2 ML VIAL IVP SCH ×2 (05:04→17:00)
[2017-03-10] MEDS: *HR* Heparin 5,000 UNIT/ML VIAL SQ SCH ×2 (05:04→16:59)
[2017-03-10] MEDS: Ondansetron 4 MG/2 ML VIAL IVP PRN ×2 (05:58→17:00)
[2017-03-10] MEDS ORDERED: Thiamine (B-1) 100 MG, Folic Acid 1 MG, MVI, adult with vitamin K 10 ML in 0.9 % Sodi... IVPB ONE (06:00)
[2017-03-10] MEDS: Ibuprofen 400 MG TABLET PO PRN ×2 (06:02→18:26)
[2017-03-10] MEDS ORDERED: *HR* Metoprolol 5 MG/5 ML VIAL IVP PRN (06:10)
[2017-03-10] MEDS: 0.9 % Sodium Chloride 1,000 ML IVC SCH ×2 (07:57→16:51)
[2017-03-10] MEDS: Chlorhexidine Rinse 15 ML MOUTHWASH MM SCH ×2 (07:58→20:35)
--- NOTE | 2017-03-10 09:31 | Internal Med Progress Note ---
Date of Encounter: 03/10/17 Time of Encounter: 08:45 - Assessment and plan (1) Drug overdose Current Visit: Yes Status: Acute Assessment and plan: Acute respiratory failure secondary to drug overdose Accidental overdose with heroin and alcohol, denies any suicidal ideation or the current episode being a suicide attempt social worker assistant eval requested for resources after discharge d/c bedside sitter psychiatry evaluation requested for drug overdose and concern for depression respiratory status back to baseline, extubated overnight and currently saturating well on room air given history of IVDA, will obtain 2D echo to rule out any IE/vegetations Qualifiers: Encounter type: initial encounter Injury intent: undetermined intent Qualified Code(s): T50.904A - Poisoning by unspecified drugs, medicaments and biological substances, undetermined, initial encounter (2) Alcohol withdrawal Current Visit: Yes Status: Acute Assessment and plan: continue CIWA monitoring q1h ativan as per CIWA protocol IV fluids Folate, Thiamine sinus tachycardia secondary to withdrawal will continue to closely monitor Qualifiers: Complication of substance-induced condition: with unspecified complication Qualified Code(s): F10.239 - Alcohol dependence with withdrawal, unspecified (3) Hepatitis C Current Visit: Yes Status: Chronic Assessment and plan: elevated transaminases secondary to chronic hep C Qualifiers: Viral hepatitis chronicity: chronic Hepatic coma status: without hepatic coma Qualified Code(s): B18.2 - Chronic viral hepatitis C (4) Alcohol abuse Current Visit: Yes Status: Chronic (5) Tobacco abuse Current Visit: Yes Status: Acute Assessment and plan: smoking cessation counseling provided patient refused nicotine patch (6) Respiratory failure Current Visit: Yes Status: Resolved Qualifiers: Chronicity: acute Respiratory failure complication: hypoxia and hypercapnia Qualified Code(s): J96.01 - Acute respiratory failure with hypoxia ; J96.02 - Acute respiratory failure with hypercapnia (7) DVT prophylaxis Current Visit: Yes Status: Acute Assessment and plan: Heparin SQ - Subjective Interval history: Patient seen and examined at bedside. Sitting in bed and reports of feeling better at this time. Pt is admitted s/p heroin and alcohol overdose. He was initially intubated for airway protection but extubated overnight. He is currently saturating well on room air. Overnight shortly after he had extubated , he had expressed concerns of his overdose being a suicide attempt. However during my evaluation this morning, patient states he did make a suicide attempt earlier this month and was hospitalized in the behavioral unit for a few weeks there after. He states his overdose prior to this hospitalization was not a suicide attempt. He states he was just trying to get high and is shocked that he passed out. He denies any suicidal ideations at this time. He does get tearful when questioned about his alcohol abuse history. Reports of starting to drink alcohol at the age of 6. States he drinks daily and does not recall the amount of alcohol he had yesterday prior to his hospitalization. Psychiatry evaluation has been requested and social worker assistant are requested. He is stable to be transferred out of the ICU to , awaiting bed placement. - Constitutional Vitals: Temp Pulse Resp BP Pulse Ox 98.2 F 116 18 152/102 96 03/10/17 08:00 03/10/17 09:00 03/10/17 09:00 03/10/17 09:00 03/10/17 09:00 General appearance: Present: A&O X 3, no acute distress, obese, answers questions appropriately - Head Head exam: Present: atraumatic, normocephalic - Eye Eye exam: Present: normal appearance, conjuntiva pink, sclera anicteric - Respiratory Respiratory exam: Present: CTAB. Absent: respiratory distress, wheezes - Cardiovascular Cardiovascular exam: Present: +S1, +S2, tachycardia. Absent: diastolic murmur, gallop, rubs, systolic murmur - GI/Abdominal GI/Abdominal exam: Present: normal bowel sounds, soft, no peritoneal signs. Absent: distended, tenderness - Extremities Exam Extremities exam: Present: warm, radial pulses palpable and symmetrical. Absent : calf tenderness, cyanotic, pedal edema Additional comments: left index finger-clear blister tram iniguez on left AC - Neurological Exam Neurological exam: Present: alert, oriented X3 - Psychiatric Psychiatric exam: Absent: homicidal ideation, suicidal ideation Internal Medicine: Result - Labs CBC & Chem 7: 03/10/17 02:47 03/10/17 02:47 Labs: Short CBC 03/10/17 Range/Units 02:47 WBC 4.8 (4.3-11.1) K/mcL Hgb 15.3 (12.9-16.9) g/dL Hct 46.2 (37.5-50.1) % Plt Count 220 (140-400) K/mcL Neutrophils # 0.3 L (1.6-8.9) K/mcL BMP 03/10/17 02:47 Sodium 144 Potassium 4.0 Chloride 113 H Carbon Dioxide 23 BUN 6 L Creatinine 0.69 L Glucose 116 H Calcium 8.0 L Liver Function 03/10/17 Range/Units 02:47 Total Bilirubin 0.4 (0.2-1.2) mg/dL AST 276 H (5-34) Units/L ALT 616 H (0-55) Units/L Alkaline Phosphatase 89 (38-126) Units/L Albumin 3.4 L (3.5-5.0) g/dL - ABG Interpretation ABG results: ABG ABG pH 7.32 pH Units (7.32-7.45) 03/10/17 02:03 ABG pCO2 47 mmHg (35-45) H 03/10/17 02:03 ABG pO2 133 mmHg (85-104) H 03/10/17 02:03 ABG O2 Saturation 99 % (95-98) H 03/10/17 02:03 - Impressions Impressions Chest X-Ray 03/09/17 21:31 IMPRESSION: Mid to lower lung zone bilateral airspace disease. This is nonspecific and may represent pulmonary edema or pneumonia. ET tube and enteric tube as described D/ / Antonino Hooper / Antonino Hooper Interpreting Provider: Antonino Hooper X-Ray 03/09/17 21:31 IMPRESSION: Enteric tube projecting in the left upper quadrant. No acute abnormality otherwise D/ / Antonino Hooper / Antonino Hooper Interpreting Provider: Antonino Hooper Consult Discharge Plan - Plan Referrals: NONE,PCP [Primary Care Provider] -
[2017-03-10] MEDS: *HR* LORazepam 2 MG/ML VIAL IVP PRN ×3 (10:24→12:21)
[2017-03-10] MEDS: Gabapentin 400 MG CAPSULE PO SCH ×3 (11:22→20:59)
[2017-03-10] MEDS: Folic Acid 1 MG TABLET PO SCH (12:21)
[2017-03-10] MEDS: Thiamine (B-1) 100 MG TABLET PO SCH (12:21)
[2017-03-10] MEDS ORDERED: diazePAM 10 MG/2 ML SYRINGE IVP PRN ×3 (12:36)
[2017-03-10] MEDS: diazePAM 10 MG/2 ML SYRINGE IVP PRN ×2 (14:06→16:59)
[2017-03-10] MEDS: *HR* Metoprolol 5 MG/5 ML VIAL IVP SCH ×2 (14:07→16:59)
--- NOTE | 2017-03-10 15:28 | Electrocardiograph Report ---
[address] [place] [address] Test Date: 2017-03-09 Pat Name: Wes Brumfield Department: 0 Room: [facility] Gender: M Ndt Inspector: Msc : [id number] Requested By: Randa Alvarado Order Number: [id number] Reading MD: Kevin Franklin MD Measurements Intervals [place] Rate: 111 P: 46 IL: 173 QRS: 19 QRSD: 106 T: 20 QT: 349 QTc: 415 Interpretive Statements SINUS TACHYCARDIA Electronically Signed On 03-10-2017 15:26:22 EDT by Kevin Franklin MD
--- NOTE | 2017-03-10 16:11 | Consult Note ---
Date of Encounter: 03/10/17 Time of Encounter: 14:00 Assessment & Recommendation (1) Drug overdose Current visit: Yes Status: Acute Qualifiers: Encounter type: initial encounter Injury intent: accidental or unintentional Qualified Code(s): T50.901A - Poisoning by unspecified drugs, medicaments and biological substances, accidental (unintentional), initial encounter (2) Heroin overdose Current visit: Yes Status: Acute Qualifiers: Encounter type: initial encounter Injury intent: accidental or unintentional Qualified Code(s): T40.1X1A - Poisoning by heroin, accidental ( unintentional), initial encounter (3) PTSD (post-traumatic stress disorder) Current visit: Yes Status: Acute (4) Polysubstance (excluding opioids) dependence Current visit: Yes Status: Acute History of Present Illness Requesting Physician: Emily Schneider MD Reason for consult: possible suicide attempt , drug overdose. History of present illness: Mr. Brumfield is a 31 year old male consulted today for drug overdose possible suicidal attempt. Chart reviewed. Patient was bought to ED after apparent drug overdose with respiratory failure, patient was intubated in ED and brought up to the ICU where he was extubated today psych consult was requested. Patient was seen today as per Mr. Brumfield he has been using heroin IV every day since 2014 he is has history of polysubstance dependence , PTSD ,depression and anxiety ,he is on medications given by psychiatrist at [facility], patient states that he has been to multiple rehabs and has multiple psychiatric admissions with 3 past suicidal attempts, patient states that he was taking his medications along with drugs. States that last night he drank some alcohol beverages maybe 2 and he was cooking and he passed out he remembers that he was picked up and had taken but he does not remember that he took heroine or not but he had taken IV heroine day before which was good little chunk, he has 2 person living with him as per him " they have narcan ready so i don't fall , as per him they used 6 Narcan before they brought me here. Patient states that he has used meth, crack ,acid , mushrooms and also huffed gas, alcohol. He took Thorazine 50 mg in the morning and 200 mg that day when he had this episode . Patient denies this as a suicidal attempt but he also stated "I have a lot of stuff to deal with on this earth , I do not want to deal with it anymore." Past psychiatric history history of PTSD , depression and polysubstance dependence 3 past suicidal attempts by overdose on drugs he has multiple psychiatric admissions and rehabs he [place] who [place] giving [place] medications he stated recent medications were Thorazine and not latuda , he has been on multiple medications including Benzo, all SSRIs and several other medications he cannot remember. 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 A/P The patient would need to continue withdrawal stabilization from alcohol and heroine. Patient needs [place] psychiatric inpatient hospitalization once stable as patient still is having thoughts of not want to deal with the stuff he is dealing with ,he is impulsive and also needs inpatient drug rehabilitation program patient. PATIENT HAS MULTIPLE SUICIDE attempts and is at high risk. Patient is a and has been at [facility] his psychiatrist is also at [facility] once stable he can be discharged to [place] psychiatric unit Thank you for the consult CC: Emily Schneider MD Past Med Surg Social Fam HX - Past Medical History Medical history: other - Past Psychiatric History Psychiatric history: Reports: anxiety, depression, PTSD, prior suicide attempt, previous psychiatric hospitalization Family psychiatric history: No Family History of Suicide: None - Past Surgical History Surgical History: other - Social History Smoking Status: Current every day smoker Smokeless Tobacco Status: No Alcohol use: heavy Drug use: marijuana, IV Drug Use Medications & Allergies Gabapentin [Neurontin] 800 mg PO TID 03/09/17 [History] Ibuprofen [Motrin] 800 mg PO Q8HR 03/09/17 [History] Lurasidone HCl [Latuda] 80 mg PO HS 03/09/17 [History] Naloxone HCl [Narcan] 4 mg NS AD PRN 03/09/17 [History] Neomycin Blount/Bacitrac Zn/Poly [Triple Antibiotic Ointment] 1 appl TP DAILY [History] Thiamine (B-1) [Vitamin B-1] 100 mg PO BID 03/09/17 [History] 3 Allergy/AdvReac Type Severity Reaction Status Date / Time naltrexone AdvReac See Verified 03/09/17 20:17 Comments sumatriptan [From Imitrex] AdvReac See Verified 03/09/17 20:17 Comments Review of Systems Psychiatric: Reports: depression, anxiety Mental Status Exam Patient orientation: Yes Person, Yes Time, Yes Place Level of alertness: Alert Patient appearance: Appropriate Behavior: cooperative, anxious Psychomotor activity: Normal Eye contact: Maintains Eye Contact Mood description: Anxious Affect description: congruent with mood Speech pattern: Coherent Speech volume: Normal Thought process: Intact Thought content: Yes Preoccupation Attention span: Capable of Sustained Attention Patient reliability: Questionable Historian Intelligence estimate: Average Judgment: Limited Insight: Partial Results - Vital Signs Vital signs: Temp Pulse Resp BP Pulse Ox 98.2 F 115 16 163/110 97 03/10/17 08:00 03/10/17 14:00 03/10/17 14:00 03/10/17 14:00 03/10/17 14:00 - Labs Labs: Laboratory Last Values WBC 4.8 K/mcL (4.3-11.1) 03/10/17 02:47 RBC 5.22 M/mcL (4.19-5.50) 03/10/17 02:47 Hgb 15.3 g/dL (12.9-16.9) 03/10/17 02:47 Hct 46.2 % (37.5-50.1) 03/10/17 02:47 MCV 88.5 fL (83.0-100.0) 03/10/17 02:47 MCH 29.3 pg (28.0-33.3) 03/10/17 02:47 MCHC 33.1 g/dL (31.6-35.5) 03/10/17 02:47 RDW 15.7 % (11.5-14.5) H 03/10/17 02:47 Plt Count 220 K/mcL (140-400) 03/10/17 02:47 MPV 9.8 fL (9.4-12.4) 03/10/17 02:47 Immature Gran % 0.6 % (0-4) 03/10/17 02:47 Seg Neutrophils % 7.1 % 03/10/17 02:47 Lymphocytes % 71.7 % 03/10/17 02:47 Monocytes % 18.5 % 03/10/17 02:47 Eosinophils % 1.5 % 03/10/17 02:47 Basophils % 0.6 % 03/10/17 02:47 Neutrophils # 0.3 K/mcL (1.6-8.9) L 03/10/17 02:47 Lymphocytes # 3.4 K/mcL (0.6-4.6) 03/10/17 02:47 Monocytes # 0.9 K/mcL (0.0-1.3) 03/10/17 02:47 Eosinophils # 0.1 K/mcL (0.0-0.6) 03/10/17 02:47 Basophils # 0.0 K/mcL (0.0-0.2) 03/10/17 02:47 Reactive Lymphocytes Present (Not Present) A 03/10/17 02:47 Platelet Estimate Normal (Normal) 03/10/17 02:47 ABG pH 7.32 pH Units (7.32-7.45) 03/10/17 02:03 ABG pCO2 47 mmHg (35-45) H 03/10/17 02:03 ABG pO2 133 mmHg (85-104) H 03/10/17 02:03 ABG HCO3 24.2 mEQ/L (21-27) 03/10/17 02:03 ABG Total CO2 25.6 mEq/L (20-26) 03/10/17 02:03 ABG O2 Saturation 99 % (95-98) H 03/10/17 02:03 ABG Base Excess -2.4 mEq/L (-2.0 to 3.0) L 03/10/17 02:03 Blood Gas Modality VCT 03/10/17 02:03 Inspired O2 35 % 03/10/17 02:03 Sodium 144 mEq/L (136-145) 03/10/17 02:47 Potassium 4.0 mEq/L (3.5-4.5) 03/10/17 02:47 Chloride 113 mEq/L (98-109) H 03/10/17 02:47 Carbon Dioxide 23 mEq/L (19-29) 03/10/17 02:47 BUN 6 mg/dL (8-26) L 03/10/17 02:47 Creatinine 0.69 mg/dL (0.72-1.25) L 03/10/17 02:47 Est GFR ( Amer) > 60 (> 60) 03/10/17 02:47 Est GFR (Non-Af Amer) > 60 (> 60) 03/10/17 02:47 BUN/Creatinine Ratio 9 (6-26) 03/10/17 02:47 Glucose 116 mg/dL (70-99) H 03/10/17 02:47 POC Glucose 126 (58-89) H 03/09/17 21:23 Calculated Osmolality 297 (280-300) 03/10/17 02:47 Lactic Acid 1.6 mmol/L (0.5-2.2) 03/09/17 19:15 Calcium 8.0 mg/dL (8.6-10.8) L 03/10/17 02:47 Magnesium 1.9 mg/dL (1.6-2.6) 03/10/17 02:47 Total Bilirubin 0.4 mg/dL (0.2-1.2) 03/10/17 02:47 Direct Bilirubin 0.3 mg/dL (0.0-0.5) 03/09/17 19:15 Indirect Bilirubin 0.4 mg/dL (0.0-1.2) 03/09/17 19:15 AST 276 Units/L (5-34) H 03/10/17 02:47 ALT 616 Units/L (0-55) H 03/10/17 02:47 Alkaline Phosphatase 89 Units/L (38-126) 03/10/17 02:47 Troponin I 0.00 ng/mL (0-0.03) 03/09/17 19:15 Serum Total Protein 6.7 g/dL (6.0-8.3) 03/10/17 02:47 Albumin 3.4 g/dL (3.5-5.0) L 03/10/17 02:47 Globulin 3.3 g/dL (2.4-3.5) 03/10/17 02:47 Albumin/Globulin Ratio 1.0 (1.1-2.2) L 03/10/17 02:47 Urine Color Yellow (Yellow) 03/09/17 18:50 Urine Clarity Clear (Clear) 03/09/17 18:50 Urine pH 6.0 pH Units (5.0-8.0) 03/09/17 18:50 Ur Specific [place] 1.011 (1.010-1.025) 03/09/17 18:50 Urine Protein Negative mg/dL (Neg-Trace) 03/09/17 18:50 Urine Glucose (UA) Normal mg/dL (Normal) 03/09/17 18:50 Urine Ketones Negative mg/dL (Negative) 03/09/17 18:50 Urine Blood Negative (Negative) 03/09/17 18:50 Urine Nitrite Negative (Negative) 03/09/17 18:50 Urine Bilirubin Negative (Negative) 03/09/17 18:50 Urine Urobilinogen Normal mg/dL (Normal) 03/09/17 18:50 Ur Leukocyte Esterase Negative (Negative) 03/09/17 18:50 Salicylates < 5.0 mg/dL (15-30) L 03/09/17 19:15 Urine Opiates Screen Positive ng/mL (Gfyhvl=626) H 03/09/17 18:50 Acetaminophen < 1.0 mcg/mL (10-30) L 03/09/17 19:15 Ur Barbiturates Screen Negative ng/mL (Nuifjt=566) 03/09/17 18:50 Ur Phencyclidine Scrn Negative ng/mL (Cutoff=25) 03/09/17 18:50 Ur Amphetamines Screen Negative ng/mL (Oifcfo=4194) 03/09/17 18:50 U Benzodiazepines Scrn Negative ng/mL (Whowbc=917) 03/09/17 18:50 Urine Cocaine Screen Negative ng/mL (Cutoff= 300) 03/09/17 18:50 U Marijuana (THC) Screen Positive ng/mL (Cutoff = 50) H 03/09/17 18:50 Ethyl Alcohol 369 mg/dL (0-10) H 03/09/17 19:15 - Impressions Impressions Chest X-Ray 03/09/17 21:31 IMPRESSION: Mid to lower lung zone bilateral airspace disease. This is nonspecific and may represent pulmonary edema or pneumonia. ET tube and enteric tube as described D/ / Antonino Hooper / Antonino Hooper Interpreting Provider: Antonino Hooper X-Ray 03/09/17 21:31 IMPRESSION: Enteric tube projecting in the left upper quadrant. No acute abnormality otherwise D/ / Antonino Hooper / Antonino Hooper Interpreting Provider: Antonino Hooper Consult Discharge Plan - Plan Additional Instructions: [facility] need [facility] treatment. Referrals: NONE,PCP [Primary Care Provider] -
[2017-03-11] MEDS: *HR* Metoprolol 5 MG/5 ML VIAL IVP SCH ×5 (00:57→23:52)
[2017-03-11] MEDS: *HR* Heparin 5,000 UNIT/ML VIAL SQ SCH ×3 (05:38→21:11)
[2017-03-11 07:11] LABS: Hemoglobin 13.9 g/dL (12.9-16.9); Mean Corpuscular HGB Conc 33.1 g/dL (31.6-35.5); Mean Corpuscular Hemoglobin 28.7 pg (28.0-33.3); Mean Corpuscular Volume 86.6 fL (83.0-100.0); Mean Platelet Volume 10.7 fL (9.4-12.4); Neutrophils # 0.6 K/mcL (1.6-8.9); Platelet Count 193 K/mcL (140-400); Red Blood Count 4.85 M/mcL (4.19-5.50); Red Cell Distribution Width 14.9 % (11.5-14.5)
[2017-03-11 07:13] LABS: BUN/Creatinine Ratio 12 (6-26); Blood Urea Nitrogen 8 mg/dL (8-26); Carbon Dioxide 27 mEq/L (19-29); Chloride 106 mEq/L (98-109); Glucose 91 mg/dL (70-99); Magnesium 1.7 mg/dL (1.6-2.6); Osmolality,Calculated 288 (280-300); Phosphorous 2.5 mg/dL (2.3-4.7); Potassium 3.6 mEq/L (3.5-4.5); Sodium 140 mEq/L (136-145); eGFR For African Americans > 60 (> 60); eGFR For Non-African Americans > 60 (> 60)
[2017-03-11 07:45] LABS: Basophils # 0.1 K/mcL (0.0-0.2); Eosinophils # 0.3 K/mcL (0.0-0.6); Lymphocytes # 2.2 K/mcL (0.6-4.6); Monocytes # 1.2 K/mcL (0.0-1.3)
[2017-03-11 07:46] LABS: Platelet Estimate Normal (Normal)
[2017-03-11] MEDS: Thiamine (B-1) 100 MG TABLET PO SCH (08:08)
[2017-03-11] MEDS: Nicotine 2 MG GUM BC PRN ×3 (08:08→14:54)
[2017-03-11] MEDS: Gabapentin 400 MG CAPSULE PO SCH ×3 (08:08→20:52)
[2017-03-11] MEDS: Folic Acid 1 MG TABLET PO SCH (08:08)
[2017-03-11] MEDS: diazePAM 10 MG/2 ML SYRINGE IVP PRN ×3 (08:59→13:36)
--- NOTE | 2017-03-11 09:29 | Internal Med Progress Note ---
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 Qualifiers: Encounter type: initial encounter Injury intent: accidental or unintentional Qualified Code(s): T50.901A - Poisoning by unspecified drugs, medicaments and biological substances, accidental (unintentional), initial encounter (2) Respiratory failure Current Visit: Yes Status: Resolved Qualifiers: Chronicity: acute Respiratory failure complication: hypoxia and hypercapnia Qualified Code(s): J96.01 - Acute respiratory failure with hypoxia ; J96.02 - Acute respiratory failure with hypercapnia (3) DVT prophylaxis Current Visit: Yes Status: Acute Assessment and plan: Heparin SQ (4) Hepatitis C Current Visit: Yes Status: Chronic Assessment and plan: elevated transaminases secondary to chronic hep C Qualifiers: Viral hepatitis chronicity: chronic Hepatic coma status: without hepatic coma Qualified Code(s): B18.2 - Chronic viral hepatitis C (5) Alcohol withdrawal Current Visit: Yes Status: Acute Assessment and plan: continue CIWA monitoring q1h Diazepam as per CIWA protocol IV fluids Folate, Thiamine will continue to closely monitor Qualifiers: Complication of substance-induced condition: with unspecified complication Qualified Code(s): F10.239 - Alcohol dependence with withdrawal, unspecified (6) Alcohol abuse Current Visit: Yes Status: Chronic (7) Tobacco abuse Current Visit: Yes Status: Acute Assessment and plan: smoking cessation counseling provided Nicotine supplementation provided - Subjective Interval history: Patient seen and examined at bedside. Sitting in bed and unhappy about being hospitalized. He tried leaving AMA yesterday evening, however as per psychiatry evaluation, he needs further inpatient psych rehab and is at high risk given history of multiple suicide attempts. As per psychiatry request, patient was pink slipped and cannot leave AMA for 72 hours. He was not getting symptomatic relief with Lorazepam due to which Diazepam was started and Lorazepam was discontinued. He is eager to leave but during my evaluation, he was calm and understood the plan at this time. He has a bedside sitter in his room. - Constitutional Vitals: Temp Pulse Resp BP Pulse Ox 97.9 F 65 16 142/81 97 03/11/17 04:42 03/11/17 09:05 03/11/17 04:42 03/11/17 04:42 03/11/17 09:05 General appearance: Present: A&O X 3, no acute distress, obese, answers questions appropriately - Head Head exam: Present: atraumatic, normocephalic - Eye Eye exam: Present: conjuntiva pink, sclera anicteric - Respiratory Respiratory exam: Present: CTAB. Absent: accessory muscle use, rales, rhonchi, wheezes - Cardiovascular Cardiovascular exam: Present: RRR, +S1, +S2. Absent: diastolic murmur, gallop, rubs, systolic murmur - GI/Abdominal GI/Abdominal exam: Present: normal bowel sounds, soft, no peritoneal signs. Absent: distended, tenderness - Extremities Exam Extremities exam: Present: warm, radial pulses palpable and symmetrical. Absent : calf tenderness, cyanotic, pedal edema - Neurological Exam Neurological exam: Present: alert, oriented X3 - Psychiatric Psychiatric exam: Present: normal affect, normal mood. Absent: homicidal ideation, suicidal ideation Internal Medicine: Result - Labs CBC & Chem 7: 03/11/17 06:15 03/11/17 06:15 Labs: Short CBC 03/11/17 Range/Units 06:15 WBC 4.3 (4.3-11.1) K/mcL Hgb 13.9 (12.9-16.9) g/dL Hct 42.0 (37.5-50.1) % Plt Count 193 (140-400) K/mcL Neutrophils # 0.6 L (1.6-8.9) K/mcL BMP 03/11/17 06:15 Sodium 140 Potassium 3.6 Chloride 106 Carbon Dioxide 27 BUN 8 Creatinine 0.65 L Glucose 91 Calcium 9.0 - ABG Interpretation ABG results: ABG ABG pH 7.32 pH Units (7.32-7.45) 03/10/17 02:03 ABG pCO2 47 mmHg (35-45) H 03/10/17 02:03 ABG pO2 133 mmHg (85-104) H 03/10/17 02:03 ABG O2 Saturation 99 % (95-98) H 03/10/17 02:03 - Impressions Impressions Chest X-Ray 03/09/17 21:31 IMPRESSION: Mid to lower lung zone bilateral airspace disease. This is nonspecific and may represent pulmonary edema or pneumonia. ET tube and enteric tube as described D/ / Antonino Hooper / Antonino Hooper Interpreting Provider: Antonino Hooper X-Ray 03/09/17 21:31 IMPRESSION: Enteric tube projecting in the left upper quadrant. No acute abnormality otherwise D/ / Antonino Hooper / Antonino Hooper Interpreting Provider: Antonino Hooper Consult Discharge Plan - Plan Additional Instructions: [facility] need [facility]one treatment. Referrals: NONE,PCP [Primary Care Provider] -
--- NOTE | 2017-03-11 11:36 | Consult Note ---
Date of Encounter: 03/11/17 Time of Encounter: 10:45 Assessment & Recommendation (1) Drug overdose Current visit: Yes Status: Acute Qualifiers: Encounter type: initial encounter Injury intent: accidental or unintentional Qualified Code(s): T50.901A - Poisoning by unspecified drugs, medicaments and biological substances, accidental (unintentional), initial encounter (2) Heroin overdose Current visit: Yes Status: Acute Qualifiers: Encounter type: initial encounter Injury intent: accidental or unintentional Qualified Code(s): T40.1X1A - Poisoning by heroin, accidental ( unintentional), initial encounter (3) PTSD (post-traumatic stress disorder) Current visit: Yes Status: Acute (4) Polysubstance (excluding opioids) dependence Current visit: Yes Status: Acute History of Present Illness Requesting Physician: Emily Schneider MD Reason for consult: patient agitated, wants to leave ama. History of present illness: Mr. Brumfield is a 31 year old male, with heroin OD and alcohol abuse , h/o ptsd , anxiety. PT. seen today for follow up as agitated and wants to leave AMA. is very restless and anxious , sweating , c/o stomach cramps and is having withdrawl from heroin. he is still suicidal. states my dad messing up with me , telling me i will , I do not even care now. he was given iv valium and he still has high BP and very anxious. PLAN PLEASE S tart SUBOXONE 4 MG SL now , then can repeat 2 mg sl every 2 hours not to exceed 8 mg sl. day 2 can take upto 10 mg , day three 12 mg in divided doses. not to exceed 12 mg as it takes 5 days to reach steady state. continue neurontin , he can take clonidine prn 0.1 mg for increase BP. for anxiety can give him baclofen 10 mg prn. or vistaril prn . patient once stable can go to Psych inpatient at [place]. CC: Emily Schneider MD Past Med Surg Social Fam HX - Past Medical History Medical history: other - Past Psychiatric History Psychiatric history: Reports: depression, PTSD, prior suicide attempt, previous psychiatric hospitalization Family psychiatric history: No Family History of Suicide: Unknown - Past Surgical History Surgical History: other - Social History Smoking Status: Current every day smoker Smokeless Tobacco Status: No Alcohol use: heavy Drug use: marijuana, IV Drug Use Medications & Allergies Gabapentin [Neurontin] 800 mg PO TID 03/09/17 [History] Ibuprofen [Motrin] 800 mg PO Q8HR 03/09/17 [History] Lurasidone HCl [Latuda] 80 mg PO HS 03/09/17 [History] Naloxone HCl [Narcan] 4 mg NS AD PRN 03/09/17 [History] Neomycin Blount/Bacitrac Zn/Poly [Triple Antibiotic Ointment] 1 appl TP DAILY [History] Thiamine (B-1) [Vitamin B-1] 100 mg PO BID 03/09/17 [History] 3 Allergy/AdvReac Type Severity Reaction Status Date / Time naltrexone AdvReac See Verified 03/09/17 20:17 Comments sumatriptan [From Imitrex] AdvReac See Verified 03/09/17 20:17 Comments Review of Systems Psychiatric: Reports: depression, anxiety, suicidal ideation, difficulty concentrating, hopelessness, irritability Mental Status Exam Patient orientation: Yes Person, Yes Time Level of alertness: Alert Patient appearance: Disheveled Behavior: anxious, agitated, restless Psychomotor activity: Increased Eye contact: Maintains Eye Contact Mood description: Angry, Anxious Affect description: congruent with mood Speech pattern: Normal rate Speech volume: Normal, Loud Thought process: Logical Thought content: Yes Suicidal ideation, Yes Preoccupation Attention span: Unable to Sustain Attention Intelligence estimate: Average Judgment: Limited Insight: Minimal Results - Vital Signs Vital signs: Temp Pulse Resp BP Pulse Ox 97.5 F L 80 16 161/95 96 03/11/17 11:23 03/11/17 11:23 03/11/17 11:23 03/11/17 11:23 03/11/17 11:23 - Labs Labs: Laboratory Last Values WBC 4.3 K/mcL (4.3-11.1) 03/11/17 06:15 RBC 4.85 M/mcL (4.19-5.50) 03/11/17 06:15 Hgb 13.9 g/dL (12.9-16.9) 03/11/17 06:15 Hct 42.0 % (37.5-50.1) 03/11/17 06:15 MCV 86.6 fL (83.0-100.0) 03/11/17 06:15 MCH 28.7 pg (28.0-33.3) 03/11/17 06:15 MCHC 33.1 g/dL (31.6-35.5) 03/11/17 06:15 RDW 14.9 % (11.5-14.5) H 03/11/17 06:15 Plt Count 193 K/mcL (140-400) 03/11/17 06:15 MPV 10.7 fL (9.4-12.4) 03/11/17 06:15 Immature Gran % 0.6 % (0-4) 03/10/17 02:47 Seg Neutrophils % 14.0 % 03/11/17 06:15 Lymphocytes % 50.0 % 03/11/17 06:15 Monocytes % 28.0 % 03/11/17 06:15 Eosinophils % 6.0 % 03/11/17 06:15 Basophils % 2.0 % 03/11/17 06:15 Neutrophils # 0.6 K/mcL (1.6-8.9) L 03/11/17 06:15 Lymphocytes # 2.2 K/mcL (0.6-4.6) 03/11/17 06:15 Monocytes # 1.2 K/mcL (0.0-1.3) 03/11/17 06:15 Eosinophils # 0.3 K/mcL (0.0-0.6) 03/11/17 06:15 Basophils # 0.1 K/mcL (0.0-0.2) 03/11/17 06:15 Reactive Lymphocytes Present (Not Present) A 03/10/17 02:47 Platelet Estimate Normal (Normal) 03/11/17 06:15 ABG pH 7.32 pH Units (7.32-7.45) 03/10/17 02:03 ABG pCO2 47 mmHg (35-45) H 03/10/17 02:03 ABG pO2 133 mmHg (85-104) H 03/10/17 02:03 ABG HCO3 24.2 mEQ/L (21-27) 03/10/17 02:03 ABG Total CO2 25.6 mEq/L (20-26) 03/10/17 02:03 ABG O2 Saturation 99 % (95-98) H 03/10/17 02:03 ABG Base Excess -2.4 mEq/L (-2.0 to 3.0) L 03/10/17 02:03 Blood Gas Modality VCT 03/10/17 02:03 Inspired O2 35 % 03/10/17 02:03 Sodium 140 mEq/L (136-145) 03/11/17 06:15 Potassium 3.6 mEq/L (3.5-4.5) 03/11/17 06:15 Chloride 106 mEq/L (98-109) 03/11/17 06:15 Carbon Dioxide 27 mEq/L (19-29) 03/11/17 06:15 BUN 8 mg/dL (8-26) 03/11/17 06:15 Creatinine 0.65 mg/dL (0.72-1.25) L 03/11/17 06:15 Est GFR ( Amer) > 60 (> 60) 03/11/17 06:15 Est GFR (Non-Af Amer) > 60 (> 60) 03/11/17 06:15 BUN/Creatinine Ratio 12 (6-26) 03/11/17 06:15 Glucose 91 mg/dL (70-99) 03/11/17 06:15 POC Glucose 126 (58-89) H 03/09/17 21:23 Calculated Osmolality 288 (280-300) 03/11/17 06:15 Lactic Acid 1.6 mmol/L (0.5-2.2) 03/09/17 19:15 Calcium 9.0 mg/dL (8.6-10.8) 03/11/17 06:15 Phosphorus 2.5 mg/dL (2.3-4.7) 03/11/17 06:15 Magnesium 1.7 mg/dL (1.6-2.6) 03/11/17 06:15 Total Bilirubin 0.4 mg/dL (0.2-1.2) 03/10/17 02:47 Direct Bilirubin 0.3 mg/dL (0.0-0.5) 03/09/17 19:15 Indirect Bilirubin 0.4 mg/dL (0.0-1.2) 03/09/17 19:15 AST 276 Units/L (5-34) H 03/10/17 02:47 ALT 616 Units/L (0-55) H 03/10/17 02:47 Alkaline Phosphatase 89 Units/L (38-126) 03/10/17 02:47 Troponin I 0.00 ng/mL (0-0.03) 03/09/17 19:15 Serum Total Protein 6.7 g/dL (6.0-8.3) 03/10/17 02:47 Albumin 3.4 g/dL (3.5-5.0) L 03/10/17 02:47 Globulin 3.3 g/dL (2.4-3.5) 03/10/17 02:47 Albumin/Globulin Ratio 1.0 (1.1-2.2) L 03/10/17 02:47 Urine Color Yellow (Yellow) 03/09/17 18:50 Urine Clarity Clear (Clear) 03/09/17 18:50 Urine pH 6.0 pH Units (5.0-8.0) 03/09/17 18:50 Ur Specific [place] 1.011 (1.010-1.025) 03/09/17 18:50 Urine Protein Negative mg/dL (Neg-Trace) 03/09/17 18:50 Urine Glucose (UA) Normal mg/dL (Normal) 03/09/17 18:50 Urine Ketones Negative mg/dL (Negative) 03/09/17 18:50 Urine Blood Negative (Negative) 03/09/17 18:50 Urine Nitrite Negative (Negative) 03/09/17 18:50 Urine Bilirubin Negative (Negative) 03/09/17 18:50 Urine Urobilinogen Normal mg/dL (Normal) 03/09/17 18:50 Ur Leukocyte Esterase Negative (Negative) 03/09/17 18:50 Salicylates < 5.0 mg/dL (15-30) L 03/09/17 19:15 Urine Opiates Screen Positive ng/mL (Gwfaja=072) H 03/09/17 18:50 Acetaminophen < 1.0 mcg/mL (10-30) L 03/09/17 19:15 Ur Barbiturates Screen Negative ng/mL (Vaxrsx=660) 03/09/17 18:50 Ur Phencyclidine Scrn Negative ng/mL (Cutoff=25) 03/09/17 18:50 Ur Amphetamines Screen Negative ng/mL (Waixhl=7365) 03/09/17 18:50 U Benzodiazepines Scrn Negative ng/mL (Dacfsw=969) 03/09/17 18:50 Urine Cocaine Screen Negative ng/mL (Cutoff= 300) 03/09/17 18:50 U Marijuana (THC) Screen Positive ng/mL (Cutoff = 50) H 03/09/17 18:50 Ethyl Alcohol 369 mg/dL (0-10) H 03/09/17 19:15 - Impressions Impressions Chest X-Ray 03/09/17 21:31 IMPRESSION: Mid to lower lung zone bilateral airspace disease. This is nonspecific and may represent pulmonary edema or pneumonia. ET tube and enteric tube as described D/ / Antonino Hooper / Antonino Hooper Interpreting Provider: Antonino Hooper X-Ray 03/09/17 21:31 IMPRESSION: Enteric tube projecting in the left upper quadrant. No acute abnormality otherwise D/ / Antonino Hooper / Antonino Hooper Interpreting Provider: Antonino Hooper Consult Discharge Plan - Plan Additional Instructions: Patient need [facility] inpatient [facility]/inpatient rehab/suboxone treatment. Referrals: NONE,PCP [Primary Care Provider] -
[2017-03-11] MEDS ORDERED: diazePAM 10 MG/2 ML SYRINGE IVP PRN ×2 (15:34→20:51)
[2017-03-11] MEDS ORDERED: diazePAM 10 MG/2 ML SYRINGE IVP ONE ×2 (15:34→20:42)
[2017-03-11] MEDS ORDERED: diazePAM 10 MG/2 ML SYRINGE ONE (15:43)
[2017-03-11] MEDS ORDERED: OLANZapine 5 MG TAB.RAPDIS PO ONE (17:38)
[2017-03-11] MEDS ORDERED: CloNIDine Patch 0.1 MG PATCH (WEEKLY) TD SCH (17:45)
[2017-03-11] MEDS: Ondansetron 4 MG/2 ML VIAL IVP PRN (18:00)
[2017-03-11] MEDS: Ibuprofen 400 MG TABLET PO PRN (19:27)
[2017-03-11] MEDS ORDERED: hydrOXYzine pamoate 25 MG CAPSULE PO PRN (20:17)
[2017-03-11] MEDS: OLANZapine 10 MG TAB.RAPDIS PO SCH (20:53)
[2017-03-12 05:37] LABS: Basophils % 1.1 %; Eosinophils # 0.2 K/mcL (0.0-0.6); Eosinophils % 4.8 %; Hematocrit 42.3 % (37.5-50.1); Hemoglobin 13.8 g/dL (12.9-16.9); Immature Granulocytes % 0.3 % (0-4); Lymphocytes # 2.4 K/mcL (0.6-4.6); Lymphocytes % 69.1 %; Mean Corpuscular HGB Conc 32.6 g/dL (31.6-35.5); Mean Corpuscular Hemoglobin 28.4 pg (28.0-33.3); Mean Platelet Volume 10.9 fL (9.4-12.4); Monocytes # 0.6 K/mcL (0.0-1.3); Monocytes % 17.3 %; Neutrophils # 0.3 K/mcL (1.6-8.9); Platelet Count 166 K/mcL (140-400); Red Blood Count 4.86 M/mcL (4.19-5.50); Red Cell Distribution Width 14.8 % (11.5-14.5); Segmented Neutrophils % 7.4 %
[2017-03-12 05:46] LABS: BUN/Creatinine Ratio 13 (6-26); Blood Urea Nitrogen 9 mg/dL (8-26); Carbon Dioxide 27 mEq/L (19-29); Chloride 111 mEq/L (98-109); Glucose 90 mg/dL (70-99); Magnesium 2.2 mg/dL (1.6-2.6); Osmolality,Calculated 298 (280-300); Phosphorous 4.5 mg/dL (2.3-4.7); Potassium 3.9 mEq/L (3.5-4.5); Sodium 145 mEq/L (136-145); eGFR For African Americans > 60 (> 60); eGFR For Non-African Americans > 60 (> 60)
[2017-03-12] MEDS: *HR* Heparin 5,000 UNIT/ML VIAL SQ SCH ×3 (05:49→21:37)
[2017-03-12 05:55] LABS: Platelet Estimate Normal (Normal)
[2017-03-12 05:56] LABS: Reactive Lymphocytes Present (Not Present)
[2017-03-12] MEDS: *HR* Metoprolol 5 MG/5 ML VIAL IVP SCH ×4 (05:58→23:53)
--- NOTE | 2017-03-12 06:27 | Event Note ---
Date of Encounter: 03/12/17 Time of Encounter: 06:21 Beginning and that shift patient was found to be roaming around the hallways. I was called by the nurse who stated the patient wanted Valium. Patient is here for alcohol withdrawal, heroin withdrawal, his pink subcutaneous suicidal ideations. Looking at electronic medical records Patient's psychiatrist consult stated he can be started on Suboxone, and vistaril or baclofen can be used for anxiety. Vistaril was offered to patient but he refused stating he was still in alchohol withdrawal (showed his tremulous arms) and needed to be on valium. Last ciwa on file was >20. Patient is on librium scheduled and valium prn. He was restarted on ciwa protocol at night. He is awaiting placement at [facility]. Furthermore, patient was on scheduled Lopressor IV for hypertenstion which was given to him this morning. Afterwards nurse reported that his tele showed he was bradycardic this was discontinued as patients BP has been stable in systolic 130s.
[2017-03-12] MEDS ORDERED: diazePAM 10 MG/2 ML SYRINGE IVP PRN ×2 (07:57→09:57)
[2017-03-12] MEDS: Gabapentin 400 MG CAPSULE PO SCH ×3 (08:11→20:01)
[2017-03-12] MEDS: Folic Acid 1 MG TABLET PO SCH (08:11)
[2017-03-12] MEDS: Ondansetron 4 MG/2 ML VIAL IVP PRN (08:12)
[2017-03-12] MEDS: Thiamine (B-1) 100 MG TABLET PO SCH (08:13)
[2017-03-12] MEDS ORDERED: diazePAM 10 MG/2 ML SYRINGE IVP ONE (09:35)
[2017-03-12] MEDS ORDERED: OLANZapine 5 MG TAB.RAPDIS PO SCH ×2 (10:00→16:00)
--- NOTE | 2017-03-12 10:05 | Transfer Summary ---
Date of Encounter: 03/12/17 Time of Encounter: 09:15 Transfer Discharge Sum: Diag - Discharge Diagnosis (1) Drug overdose Status: Acute (2) Respiratory failure Status: Resolved (3) DVT prophylaxis Status: Acute (4) Hepatitis C Status: Chronic (5) Alcohol withdrawal Status: Acute (6) Alcohol abuse Status: Chronic (7) Tobacco abuse Status: Acute Transfer Discharge Sum: Med - Medications Active and Home Medications: Home Medications Gabapentin [Neurontin] 800 mg PO TID 03/09/17 [History Confirmed 03/09/17] Ibuprofen [Motrin] 800 mg PO Q8HR 03/09/17 [History Confirmed 03/09/17] Lurasidone HCl [Latuda] 80 mg PO HS 03/09/17 [History Confirmed 03/09/17] Naloxone HCl [Narcan] 4 mg NS AD PRN 03/09/17 [History Confirmed 03/09/17] Neomycin Blount/Bacitrac Zn/Poly [Triple Antibiotic Ointment] 1 appl TP DAILY [History Confirmed 03/09/17] Thiamine (B-1) [Vitamin B-1] 100 mg PO BID 03/09/17 [History Confirmed 03/09/17] Active Medications Chlordiazepoxide HCl (Librium) 50 mg PO Q6H YAMILKA Stop: 03/12/17 10:01 Last Admin: 03/12/17 03:59 Dose: 50 mg Chlordiazepoxide HCl (Librium) 25 mg PO Q6H YAMILKA Stop: 03/13/17 10:01 Chlordiazepoxide HCl (Librium) 25 mg PO Q8H YAMILKA Stop: 03/14/17 08:01 Chlordiazepoxide HCl (Librium) 10 mg PO Q8H YAMILKA Stop: 03/15/17 08:01 Clonidine HCl (Catapres-Tts) 0.1 mg TD QWEEK YAMILKA Stop: 09/10/17 17:46 Last Admin: 03/11/17 18:28 Dose: 0.1 mg Diazepam (Valium) 5 mg IVP Q4H PRN PRN Reason: SEVERE AGITATION Stop: 09/11/17 07:58 Folic Acid (Folic Acid) 1 mg PO DAILY YAMILKA Stop: 09/09/17 09:46 Last Admin: 03/12/17 08:11 Dose: 1 mg Gabapentin (Neurontin) 800 mg PO TID YAMILKA Stop: 09/09/17 09:01 Last Admin: 03/12/17 08:11 Dose: 800 mg Heparin Sodium (Porcine) (Heparin) 5,000 unit SQ Q8HCO YAMILKA Stop: 09/10/17 22:01 Last Admin: 03/12/17 05:49 Dose: 5,000 unit Ibuprofen (Motrin) 800 mg PO Q8HR PRN; Protocol PRN Reason: Pain Stop: 09/09/17 05:48 Last Admin: 03/11/17 19:27 Dose: 800 mg Metoprolol Tartrate (Lopressor) 5 mg IVP Q6HR YAMILKA Stop: 09/09/17 12:33 Last Admin: 03/12/17 05:58 Dose: Not Given Naloxone HCl (Narcan) 0.4 mg IVP Q2MIN PRN PRN Reason: Opioid Reversal Stop: 09/08/17 20:56 Nicotine Polacrilex (Nicorette Gum) 4 mg BC Q2H PRN PRN Reason: Nicotine Cravings Stop: 09/10/17 07:17 Last Admin: 03/11/17 14:54 Dose: 4 mg Olanzapine (Zyprexa Zydis) 15 mg PO HS [facility] Stop: 09/10/17 21:01 Last Admin: 03/11/17 20:53 Dose: 15 mg Olanzapine (Zyprexa Zydis) 5 mg PO DAILY [facility] Stop: 09/11/17 10:01 Olanzapine (Zyprexa Zydis) 5 mg PO 1600 [facility] Stop: 09/11/17 16:01 Ondansetron HCl (Zofran) 4 mg IVP Q6HR PRN; Protocol PRN Reason: Nausea Stop: 09/09/17 05:44 Last Admin: 03/12/17 08:12 Dose: 4 mg Thiamine HCl (Vitamin B-1) 100 mg PO DAILY [facility] Stop: 09/09/17 09:46 Last Admin: 03/12/17 08:13 Dose: 100 mg Transfer Discharge Sum: Data Procedures and tests throughout hospitalization: Pending Orders 03/09/17 21:58 Admit as Inpatient Routine 03/10/17 03:14 Sitter [RC] .once 03/10/17 03:16 Consult to Psychiatry [CONS] Routine 03/10/17 04:03 Cardiac monitoring [RC] .ONCE Consult to Duplicate Maker [CONS] Routine 03/10/17 05:43 Ondansetron [Zofran] 4 mg IVP Q6HR PRN 03/10/17 05:47 Ibuprofen [Motrin] 800 mg PO Q8HR PRN 03/10/17 09:00 Gabapentin [Neurontin] 800 mg PO TID 03/10/17 09:45 Folic Acid 1 mg PO DAILY Thiamine (B-1) [Vitamin B-1] 100 mg PO DAILY 03/10/17 12:32 Metoprolol [Lopressor] 5 mg IVP Q6HR 03/10/17 20:27 Vital Signs Assessment [RC] Q4H 03/10/17 20:44 Cardiac monitoring [RC] CONT 03/10/17 Lunch Regular Diet 03/11/17 07:16 Nicotine Gum [Nicorette gum] 4 mg BC Q2H PRN 03/11/17 16:00 Chlordiazepoxide [Librium] 50 mg PO Q6H 03/11/17 17:45 CloNIDine Patch [Catapres-TTS] 0.1 mg TD QWEEK 03/11/17 20:51 Aspiration precautions [RC] .CONTINUOUS Elevate head of bed [RC] .CONTINUOUS 03/11/17 21:00 OLANZapine [Zyprexa Zydis] 15 mg PO HS 03/11/17 22:00 Heparin 5,000 unit SQ Q8HCO 03/12/17 09:57 diazePAM [Valium] 5 mg IVP Q4H PRN 03/12/17 10:00 OLANZapine [Zyprexa Zydis] 5 mg PO DAILY 03/12/17 16:00 Chlordiazepoxide [Librium] 25 mg PO Q6H OLANZapine [Zyprexa Zydis] 5 mg PO 1600 03/13/17 04:00 Basic Metabolic Panel AM 0400 Complete Blood Count [HEME] AM 0400 Magnesium AM 0400 Phosphorous AM 0400 03/13/17 16:00 Chlordiazepoxide [Librium] 25 mg PO Q8H 03/14/17 16:00 Chlordiazepoxide [Librium] 10 mg PO Q8H - Impressions ITS Impressions Chest X-Ray 03/09/17 21:31 IMPRESSION: Mid to lower lung zone bilateral airspace disease. This is nonspecific and may represent pulmonary edema or pneumonia. ET tube and enteric tube as described D/ / Antonino Hooper / Antonino Hooper Interpreting Provider: Antonino Hooper X-Ray 03/09/17 21:31 IMPRESSION: Enteric tube projecting in the left upper quadrant. No acute abnormality otherwise D/ / Antonino Hooper / Antonino Hooper Interpreting Provider: Antonino Hooper Transfer Discharge Sum: Prov Date of admission: 03/09/17 20:56 Primary care physician: PCP NONE Consults: 03/10/17 03:16 Consult to Psychiatry [CONS] Routine Consulting Provider: Psychiatry Caro Reason for Consult: possible suicide attempt, drug overdose. Call Completed: No 03/10/17 04:03 Consult to Duplicate Maker [CONS] Routine Reason for SW Consult: hx drug abuse, questionable home living environment, wants help with rehab Discharging clinician: Emily Schneider Anticipated date of transfer: 03/12/17 Receiving physician/facility: [facility] Transfer Discharge Sum: A/P - Plan Functional capacity at transfer: independent ambulation Overall status at transfer: patient is back to baseline Disposition: Transfer Other Transfer Discharge Sum: Hosp Hospital course: Mr. Brumfield is a 31 year old male with bipolar disorder, polysubstance abuse, alcohol abuse, history of multiple suicide attempts who was admitted for management of acute respiratory failure and unresponsiveness secondary to heroin overdose and alcohol intoxication. He was initially intubated in the ER for airway protection and was transferred to the ICU. He became responsive and was extubated and continued to saturate well on room air. Shortly after extubation, patient voiced concerns about his current overdose as being a suicide attempt due to which psychiatry consultation was requested. Even though patient has continued to state that his current overdose was not a suicide attempt, given his history of multiple suicide attempts, psychiatry evaluation recommends that he will need production aide inpatient psychiatry support. He was noted to have alcohol withdrawals for which he was started on CIWA protocol. Even with appropriate administration of benzos patient continues to remain agitated and anxious. Pacing the corridors and demanding more valium. His behavior is consistent with drug seeking rather than apparent withdrawals He was started on Vistaril for anxiety which he refused and only wants valium. Psychiatry initially had recommended Suboxone however that medication is not available at this facility. Further psych evaluation recommended discontinuing patient's home dose of Latuda and starting Olanzapine (5mg twice a day-during the day and 15 mg at bedtime). Patient is a and his medical care and psychiatrical care is managed at the [facility]. He requests transfer to the [facility]. Transfer has been initiated and patient has been accepted. Transfer pending bed availability. - Time Spent with Patient Total time spent providing and/or coordinating transfer services: Greater than 30 minutes Transfer Discharge Sum: Exam - Constitutional Vitals: Vital Signs Temp Pulse Resp BP Pulse Ox 03/12/17 08:00 98.2 F 54 16 145/80 100 03/12/17 04:38 97.6 F 55 16 135/75 97 03/11/17 23:51 97.9 F 70 18 147/93 96 03/11/17 21:05 97.5 F L 75 20 158/93 96 03/11/17 21:00 96 03/11/17 17:10 98.7 F 101 20 141/91 97 03/11/17 14:59 103 03/11/17 11:23 97.5 F L 80 16 161/95 96 03/11/17 10:05 97.9 F 99 17 160/96 97 Intake and Output 03/11/17 03/12/17 03/12/17 23:59 07:59 15:59 Intake Total 720 / 720 0 / 0 Output Total 100 / 100 Balance 620 / 620 0 / 0 Intake: Oral 720 / 720 0 / 0 Output: Emesis 100 / 100 Other: Meal Nourishment/Supplement Percent of Meal Consumed 100% Weight 112.3 kg General appearance: morbidly obese, no acute distress - Head Head exam: Present: atraumatic, normocephalic - Eye Eye exam: Present: normal appearance. Absent: scleral icterus - Respiratory Respiratory exam: Present: CTAB. Absent: respiratory distress, wheezes, tachypnea - Cardiovascular Cardiovascular exam: Present: RRR, +S1, +S2 - GI/Abdominal GI/Abdominal exam: Present: soft. Absent: distended, tenderness - Extremities Exam Extremities exam: Absent: calf tenderness, pedal edema, tenderness - Neurological Exam Neurological exam: Present: oriented X3 - Psychiatric Psychiatric exam: Present: agitated, anxious
--- NOTE | 2017-03-12 13:28 | Event Note ---
Date of Encounter: 03/12/17 Time of Encounter: 01:20 Patient seen and interviewed. History and physical examination reviewed. I reviewed psychiatric consultation note from Dr. Velez I was called to assess patient since he is agitated and restless and threatening to go after the staff. I met with the patient reassured and counseled him extensively. Security was also there. Patient started to settle down. Patient is requesting medication for agitation. He reported that Thorazine has worked for him in the past. I have reviewed his medications and decided to discontinue his attitude I did start him on Zyprexa 15 mg at night after which he slept fairly well last night. I recommended continuing the Zyprexa 15 mg at bedtime and started it on 5 mg in the morning and 5 mg in the afternoon. In addition I would recommend putting the patient on Thorazine 200 mg IM every 4 hours as needed for agitation maximum of 800 mg in 24 hours. I also reviewed patient's medications and recommend discontinuing Valium and continuing with Librium taper. I explained to the patient that we will continue to taper him off Librium patient is understandable and is agreeable with the plan. I will also [facility] a [facility] staff and recommend them to start making phone calls to these areas for possible transfer since patient is pending transfer at [facility].
[2017-03-12] MEDS: ChlorproMAZINE 25 MG/ML AMPUL IM PRN ×3 (13:54→22:58)
[2017-03-12] MEDS: Chloraseptic Spray 177 ML BOTTLE MM PRN (16:18)
[2017-03-12] MEDS: Nicotine 2 MG GUM BC PRN (17:59)
[2017-03-12] MEDS ORDERED: chlorproMAZINE 25 MG TABLET PO PRN (19:02)
[2017-03-12] MEDS: OLANZapine 10 MG TAB.RAPDIS PO SCH (20:01)
[2017-03-12] MEDS: Ibuprofen 400 MG TABLET PO PRN (20:11)
[2017-03-13] MEDS: Chloraseptic Spray 177 ML BOTTLE MM PRN ×2 (05:06→15:14)
[2017-03-13] MEDS: *HR* Heparin 5,000 UNIT/ML VIAL SQ SCH ×3 (05:07→22:39)
[2017-03-13] MEDS: *HR* Metoprolol 5 MG/5 ML VIAL IVP SCH (05:23)
[2017-03-13 05:35] LABS: Basophils % 0.8 %; Eosinophils # 0.2 K/mcL (0.0-0.6); Eosinophils % 5.3 %; Hematocrit 42.9 % (37.5-50.1); Hemoglobin 14.1 g/dL (12.9-16.9); Immature Granulocytes % 0.6 % (0-4); Lymphocytes # 2.6 K/mcL (0.6-4.6); Lymphocytes % 70.8 %; Mean Corpuscular HGB Conc 32.9 g/dL (31.6-35.5); Mean Corpuscular Hemoglobin 28.5 pg (28.0-33.3); Mean Corpuscular Volume 86.7 fL (83.0-100.0); Mean Platelet Volume 10.6 fL (9.4-12.4); Monocytes # 0.4 K/mcL (0.0-1.3); Monocytes % 11.7 %; Neutrophils # 0.4 K/mcL (1.6-8.9); Platelet Count 188 K/mcL (140-400); Red Blood Count 4.95 M/mcL (4.19-5.50); Red Cell Distribution Width 14.6 % (11.5-14.5); Segmented Neutrophils % 10.8 %
[2017-03-13 05:49] LABS: BUN/Creatinine Ratio 12 (6-26); Blood Urea Nitrogen 8 mg/dL (8-26); Carbon Dioxide 22 mEq/L (19-29); Chloride 112 mEq/L (98-109); Glucose 96 mg/dL (70-99); Magnesium 1.6 mg/dL (1.6-2.6); Osmolality,Calculated 294 (280-300); Phosphorous 4.8 mg/dL (2.3-4.7); Sodium 143 mEq/L (136-145); eGFR For African Americans > 60 (> 60); eGFR For Non-African Americans > 60 (> 60)
[2017-03-13 06:07] LABS: Platelet Estimate Normal (Normal)
[2017-03-13] MEDS ORDERED: *HR* Metoprolol 5 MG/5 ML VIAL IVP PRN (07:44)
[2017-03-13] MEDS: OLANZapine 5 MG TAB.RAPDIS PO SCH ×2 (09:25→15:12)
[2017-03-13] MEDS: Folic Acid 1 MG TABLET PO SCH (09:25)
[2017-03-13] MEDS: Gabapentin 400 MG CAPSULE PO SCH ×3 (09:25→22:05)
[2017-03-13] MEDS: Thiamine (B-1) 100 MG TABLET PO SCH (09:26)
[2017-03-13] MEDS: ChlorproMAZINE 25 MG/ML AMPUL IM PRN (09:37)
[2017-03-13] MEDS ORDERED: diazePAM 10 MG/2 ML SYRINGE IVP ONE (10:53)
[2017-03-13] MEDS: Divalproex (12 HR) 250 MG TABLET PO SCH ×2 (11:03→22:06)
--- NOTE | 2017-03-13 11:34 | Internal Med Progress Note ---
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 requested for [facility] or [facility] inpatient [facility]- transfer pending bed availability Continue librium taper Olanzapine, Depakote, thorazine as per psychiatry Qualifiers: Encounter type: initial encounter Injury intent: accidental or unintentional Qualified Code(s): T50.901A - Poisoning by unspecified drugs, medicaments and biological substances, accidental (unintentional), initial encounter (2) Respiratory failure Current Visit: Yes Status: Resolved Qualifiers: Chronicity: acute Respiratory failure complication: hypoxia and hypercapnia Qualified Code(s): J96.01 - Acute respiratory failure with hypoxia ; J96.02 - Acute respiratory failure with hypercapnia (3) DVT prophylaxis Current Visit: Yes Status: Acute Assessment and plan: Heparin SQ (4) Hepatitis C Current Visit: Yes Status: Chronic Assessment and plan: elevated transaminases secondary to chronic hep C Qualifiers: Viral hepatitis chronicity: chronic Hepatic coma status: without hepatic coma Qualified Code(s): B18.2 - Chronic viral hepatitis C (5) Alcohol withdrawal Current Visit: Yes Status: Acute Qualifiers: Complication of substance-induced condition: with unspecified complication Qualified Code(s): F10.239 - Alcohol dependence with withdrawal, unspecified (6) Alcohol abuse Current Visit: Yes Status: Chronic (7) Tobacco abuse Current Visit: Yes Status: Acute - Subjective Interval history: Patient seen and examined. Patient remains agitated, pacing the corridors, making threatening remarks towards the staff. He is demanding Valium one time dose for his severe anxiety and states he woke up feeling extremely anxious and if he receives this one time dose of Valium, he will remain calm. I evaluated the patient with security present in the room. I spoke with Dr. Benjamin (psychiatry ) in regards to patient's current behavior. He recommended adding Depakote BID to the regimen as all the other doses are already maxed out at this point. Patient's discharge to the [facility] is pending bed availability - Constitutional Vitals: Temp Pulse Resp BP Pulse Ox 97.6 F 129 18 154/95 99 03/13/17 05:27 03/13/17 09:00 03/13/17 09:00 03/13/17 09:00 03/13/17 09:00 General appearance: Present: A&O X 3, obese, answers questions appropriately. Absent: cooperative, pleasant - Head Head exam: Present: atraumatic, normocephalic - Eye Eye exam: Present: conjuntiva pink, sclera anicteric - Respiratory Respiratory exam: Present: CTAB. Absent: accessory muscle use, rales, rhonchi, wheezes - Cardiovascular Cardiovascular exam: Present: +S1, +S2, tachycardia - GI/Abdominal GI/Abdominal exam: Present: normal bowel sounds, soft, no peritoneal signs. Absent: distended, tenderness - Extremities Exam Extremities exam: Present: warm, radial pulses palpable and symmetrical. Absent : calf tenderness, cyanotic, pedal edema - Psychiatric Psychiatric exam: Present: agitated, anxious. Absent: suicidal ideation Internal Medicine: Result - Labs CBC & Chem 7: 03/13/17 05:05 03/13/17 05:05 Labs: Short CBC 03/13/17 Range/Units 05:05 WBC 3.6 L (4.3-11.1) K/mcL Hgb 14.1 (12.9-16.9) g/dL Hct 42.9 (37.5-50.1) % Plt Count 188 (140-400) K/mcL Neutrophils # 0.4 L (1.6-8.9) K/mcL BMP 03/13/17 05:05 Sodium 143 Potassium 4.0 Chloride 112 H Carbon Dioxide 22 BUN 8 Creatinine 0.69 L Glucose 96 Calcium 9.0 - ABG Interpretation ABG results: ABG ABG pH 7.32 pH Units (7.32-7.45) 03/10/17 02:03 ABG pCO2 47 mmHg (35-45) H 03/10/17 02:03 ABG pO2 133 mmHg (85-104) H 03/10/17 02:03 ABG O2 Saturation 99 % (95-98) H 03/10/17 02:03 Consult Discharge Plan - Plan Additional Instructions: [facility]. Referrals: NONE,PCP [Primary Care Provider] -
[2017-03-13] MEDS: Ibuprofen 400 MG TABLET PO PRN (15:12)
[2017-03-13] MEDS: chlorproMAZINE 25 MG TABLET PO PRN (15:45)
[2017-03-13] MEDS: OLANZapine 10 MG TAB.RAPDIS PO SCH (22:06)
[2017-03-14] MEDS: Ibuprofen 400 MG TABLET PO PRN ×3 (00:09→15:26)
[2017-03-14] MEDS: *HR* Heparin 5,000 UNIT/ML VIAL SQ SCH ×2 (06:23→14:03)
[2017-03-14] MEDS: Thiamine (B-1) 100 MG TABLET PO SCH (08:55)
[2017-03-14] MEDS: Folic Acid 1 MG TABLET PO SCH (08:55)
[2017-03-14] MEDS: OLANZapine 5 MG TAB.RAPDIS PO SCH ×2 (08:55→14:01)
[2017-03-14] MEDS: Divalproex (12 HR) 250 MG TABLET PO SCH (08:55)
[2017-03-14] MEDS: Gabapentin 400 MG CAPSULE PO SCH ×2 (08:55→14:03)
[2017-03-14] MEDS: chlorproMAZINE 25 MG TABLET PO PRN ×2 (10:23→15:35)
--- NOTE | 2017-03-14 13:23 | Internal Med Progress Note ---
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 for transfer to [facility] or [facility] inpatient psych- transfer pending bed availability Continue librium taper Olanzapine, Depakote, thorazine as per psychiatry Qualifiers: Encounter type: initial encounter Injury intent: accidental or unintentional Qualified Code(s): T50.901A - Poisoning by unspecified drugs, medicaments and biological substances, accidental (unintentional), initial encounter (2) Respiratory failure Current Visit: Yes Status: Resolved Qualifiers: Chronicity: acute Respiratory failure complication: hypoxia and hypercapnia Qualified Code(s): J96.01 - Acute respiratory failure with hypoxia ; J96.02 - Acute respiratory failure with hypercapnia (3) DVT prophylaxis Current Visit: Yes Status: Acute Assessment and plan: Heparin SQ (4) Hepatitis C Current Visit: Yes Status: Chronic Assessment and plan: elevated transaminases secondary to chronic hep C Qualifiers: Viral hepatitis chronicity: chronic Hepatic coma status: without hepatic coma Qualified Code(s): B18.2 - Chronic viral hepatitis C (5) Alcohol withdrawal Current Visit: Yes Status: Acute Qualifiers: Complication of substance-induced condition: with unspecified complication Qualified Code(s): F10.239 - Alcohol dependence with withdrawal, unspecified (6) Alcohol abuse Current Visit: Yes Status: Chronic (7) Tobacco abuse Current Visit: Yes Status: Acute Assessment and plan: smoking cessation counseling provided Nicotine supplementation provided - Subjective Interval history: Patient seen and examined. Pt resting in bed with sitter present at bedside. Pt more calm then previous day, states the thorazine is helping him. He was found to be agitated earlier this morning, demanding Diazepam, but he calmed down after receiving thorazine, zyprexa, and depakote. No overnight issues reported. Patient's discharge to the [facility] is pending bed availability - Constitutional Vitals: Temp Pulse Resp BP Pulse Ox 97.8 F 113 22 102/66 92 03/14/17 11:52 03/14/17 11:52 03/14/17 11:52 03/14/17 11:52 03/14/17 11:52 General appearance: Present: A&O X 3, no acute distress, obese, answers questions appropriately. Absent: cooperative, pleasant - Head Head exam: Present: atraumatic, normocephalic - Eye Eye exam: Present: conjuntiva pink, sclera anicteric - Respiratory Respiratory exam: Absent: respiratory distress, wheezes - Cardiovascular Cardiovascular exam: Present: +S1, +S2. Absent: diastolic murmur, systolic murmur - GI/Abdominal GI/Abdominal exam: Present: normal bowel sounds, soft, no peritoneal signs. Absent: distended, tenderness - Extremities Exam Extremities exam: Present: warm, radial pulses palpable and symmetrical. Absent : calf tenderness, cyanotic, pedal edema - Neurological Exam Neurological exam: Present: alert, oriented X3 - Psychiatric Psychiatric exam: Present: anxious. Absent: homicidal ideation, suicidal ideation Internal Medicine: Result - Labs CBC & Chem 7: 03/13/17 05:05 03/13/17 05:05 - ABG Interpretation ABG results: ABG ABG pH 7.32 pH Units (7.32-7.45) 03/10/17 02:03 ABG pCO2 47 mmHg (35-45) H 03/10/17 02:03 ABG pO2 133 mmHg (85-104) H 03/10/17 02:03 ABG O2 Saturation 99 % (95-98) H 03/10/17 02:03 Consult Discharge Plan - Plan Additional Instructions: Patient need [facility] inpatient psychiatric hospitalization/inpatient rehab/suboxone treatment. Referrals: NONE,PCP [Primary Care Provider] -
[2017-03-14 15:25] VITALS: BP 108/43
== END 2017-03-14 20:22 | disposition other institution (70) | DRG 917 ==
LOC: EMEROO 17:53 → SUATTDRO 20:56 → MERGE 20:56 → ICNU 20:56 → 2ANU 03-10 21:24
PROVIDERS: ADMIT Internal Medicine; ATTEND Internal Medicine